=== PATIENT | female | born 1945 | race Caucasian/White ===

== ENCOUNTER → 2018-05-11 13:12 | Outpatient (CLI) | payer MEDICARE, OTHER, SELFPAY | PROVIDERS: Family Provider Physician Assistant Medical; PCP Physician Assistant Medical; Visit Provider Family Medicine | DX: S81.801A Unspecified open wound, right lower leg, initial encounter (principal); E11.9 Type 2 diabetes mellitus without complications; I10 Essential (primary) hypertension | CPT/HCPCS: 99203; 99213 ==

== ENCOUNTER → 2018-05-18 13:38 | Outpatient (CLI) | payer MEDICARE, OTHER, SELFPAY | PROVIDERS: Family Provider Physician Assistant Medical; PCP Physician Assistant Medical; Visit Provider Family Medicine | DX: Z48.817 Encounter for surgical aftercare following surgery on the skin and subcutaneous tissue (principal) | CPT/HCPCS: 99212 ==

== ENCOUNTER → 2018-08-03 10:20 | Outpatient (CLI) | payer MEDICARE, OTHER, SELFPAY ==
--- NOTE | 2018-08-03 | DI.US.S_ITS ---
PROCEDURE: US PERIPH VENOUS LOW EXTREM BI INDICATIONS: Localized edema TECHNIQUE: Real-time imaging, as well as color and pulse Doppler interrogation, were performed of the deep veins of both legs from the inguinal ligament to the popliteal fossa. COMPARISON: None. FINDINGS: Right: The common femoral, femoral and popliteal veins are normally compressible, and free of intraluminal thrombus. Color and pulse Doppler demonstrate normal phasic intravascular flow. There is normal augmentation response to distal compression maneuver. Left: The common femoral, femoral and popliteal veins are normally compressible, and free of intraluminal thrombus. Color and pulse Doppler demonstrate normal phasic intravascular flow. There is normal augmentation response to distal compression maneuver. IMPRESSION: No deep venous thrombosis in the lower extremities. Dictated by: Tamika Martin M.D. on 08/03/2018 at 11:29 Approved by: Tamika Martin M.D. on 08/03/2018 at 11:30
== END ==
PROVIDERS: Family Provider Physician Assistant Medical; PCP Physician Assistant Medical; Visit Provider Podiatrist
DX: R60.0 Localized edema (principal); M79.604 Pain in right leg; M79.605 Pain in left leg; E11.9 Type 2 diabetes mellitus without complications; R26.2 Difficulty in walking, not elsewhere classified
CPT/HCPCS: 93970

== ENCOUNTER → 2018-08-17 10:12 | Outpatient (CLI) | payer MEDICARE, OTHER, SELFPAY ==
--- NOTE | 2018-08-17 | DI.US.S_ITS ---
PROCEDURE: US PENNIE LIMITED SINGLE LEVEL INDICATIONS: CELLULITIS RIGHT LEG TECHNIQUE: Ankle-brachial indices were obtained bilaterally and recorded. COMPARISONS: FINDINGS: Right ankle brachial index (PENNIE): 1.4 Left ankle brachial index (PENNIE): 1.3 IMPRESSION: Ankle-brachial indices within normal limits bilaterally. Dictated by: Leonard Hemphill [facility] Interpreted: Jp Nash MD on 08/17/2018 at 16:16 Approved by: Jp Nash M.D. on 08/17/2018 at 16:46
== END ==
PROVIDERS: Family Provider Physician Assistant Medical; PCP Physician Assistant Medical; Visit Provider Physician Assistant Medical
DX: L03.115 Cellulitis of right lower limb (principal)
CPT/HCPCS: 93922

== ENCOUNTER → 2018-08-31 13:23 | Outpatient (CLI) | payer MEDICARE, OTHER, SELFPAY | PROVIDERS: Family Provider Physician Assistant Medical; PCP Physician Assistant Medical; Visit Provider Family Medicine | DX: S81.801A Unspecified open wound, right lower leg, initial encounter (principal); L89.890 Pressure ulcer of other site, unstageable | CPT/HCPCS: 11042; 99213; 99214 ==

== ENCOUNTER → 2018-09-02 13:04 | Outpatient (CLI) | payer MEDICARE, OTHER, SELFPAY | PROVIDERS: Family Provider Physician Assistant Medical; PCP Physician Assistant Medical; Visit Provider Family Medicine | DX: I87.2 Venous insufficiency (chronic) (peripheral) (principal); L97.811 Non-pressure chronic ulcer of other part of right lower leg limited to breakdown of skin | CPT/HCPCS: 29581 ==

== ENCOUNTER → 2018-09-09 15:15 | Outpatient (CLI) | payer MEDICARE, OTHER, SELFPAY | PROVIDERS: Family Provider Physician Assistant Medical; PCP Physician Assistant Medical; Visit Provider Family Medicine | DX: I87.311 Chronic venous hypertension (idiopathic) with ulcer of right lower extremity (principal); L97.212 Non-pressure chronic ulcer of right calf with fat layer exposed; E66.01 Morbid (severe) obesity due to excess calories | CPT/HCPCS: 29581; 99213 ==

== ENCOUNTER → 2018-09-16 11:03 | Outpatient (CLI) | payer MEDICARE, OTHER, SELFPAY | PROVIDERS: Family Provider Physician Assistant Medical; PCP Physician Assistant Medical; Visit Provider Family Medicine | DX: I87.311 Chronic venous hypertension (idiopathic) with ulcer of right lower extremity (principal); L97.822 Non-pressure chronic ulcer of other part of left lower leg with fat layer exposed; R60.0 Localized edema | CPT/HCPCS: 29581; 99213 ==

== ENCOUNTER → 2018-09-23 14:46 | Outpatient (CLI) | payer MEDICARE, OTHER, SELFPAY | PROVIDERS: Family Provider Physician Assistant Medical; PCP Physician Assistant Medical; Visit Provider Family Medicine | DX: I87.312 Chronic venous hypertension (idiopathic) with ulcer of left lower extremity (principal); L97.822 Non-pressure chronic ulcer of other part of left lower leg with fat layer exposed; I87.322 Chronic venous hypertension (idiopathic) with inflammation of left lower extremity | CPT/HCPCS: 99213 ==

== ENCOUNTER → 2018-09-30 10:25 | Outpatient (CLI) | payer MEDICARE, OTHER, SELFPAY | PROVIDERS: Family Provider Physician Assistant Medical; PCP Physician Assistant Medical; Visit Provider Family Medicine | DX: Z48.817 Encounter for surgical aftercare following surgery on the skin and subcutaneous tissue (principal) | CPT/HCPCS: 99212; 99213 ==

== ENCOUNTER → 2018-10-01 09:37 | Outpatient (CLI) | payer MEDICARE, OTHER, SELFPAY ==
--- NOTE | 2018-10-01 | DI.US.S_ITS ---
PROCEDURE: US VENOUS INSUFFICIENCY LTD INDICATIONS: CHRONIC VENOUS HYPERTENSION TECHNIQUE: Real time scanning was performed of the lower extremity venous system, with imaging documentation, as well as Color and pulse Doppler interrogation. COMPARISON: None. FINDINGS: RIGHT LOWER EXTREMITY: The deep veins are normally compressible, and free of intraluminal thrombus. Color and pulse Doppler demonstrate normal intravascular flow. There is normal augmentation with distal compression maneuver. Mild reflux within the common femoral vein. Greater saphenous vein (GSV): Reflux present with duration of reflux extending beyond 0.5 seconds. See technical diagram for specific measurements and course of the greater saphenous vein. Anterior accessory GSV (AAGSV): Not evaluated. Small saphenous vein (SSV): Reflux present with duration of reflux extending beyond 0.5 seconds. IMPRESSION: 1. Reflux within the right greater and shorter saphenous veins and mild reflux within the common femoral vein. Dictated by: Leonard BARLOW Interpreted: Verenice Lebron MD on 10/01/2018 at 11:04 Approved by: Verenice Lebron M.D. on 10/01/2018 at 16:00
== END ==
PROVIDERS: Family Provider Physician Assistant Medical; PCP Physician Assistant Medical; Visit Provider Family Medicine
DX: I87.312 Chronic venous hypertension (idiopathic) with ulcer of left lower extremity (principal); I87.322 Chronic venous hypertension (idiopathic) with inflammation of left lower extremity
CPT/HCPCS: 93971

== ENCOUNTER → 2018-10-05 14:54 | Outpatient (CLI) | payer MEDICARE, OTHER, SELFPAY | PROVIDERS: Family Provider Physician Assistant Medical; PCP Physician Assistant Medical; Visit Provider Family Medicine | DX: I87.2 Venous insufficiency (chronic) (peripheral) (principal); L97.811 Non-pressure chronic ulcer of other part of right lower leg limited to breakdown of skin | CPT/HCPCS: 99213 ==

== ENCOUNTER → 2018-11-10 13:00 | Outpatient (CLI) | payer MEDICARE, OTHER, SELFPAY | PROVIDERS: Family Provider Physician Assistant Medical; PCP Physician Assistant Medical; Visit Provider Family Medicine | DX: I87.311 Chronic venous hypertension (idiopathic) with ulcer of right lower extremity (principal); L97.811 Non-pressure chronic ulcer of other part of right lower leg limited to breakdown of skin; R60.0 Localized edema; M79.661 Pain in right lower leg; E66.01 Morbid (severe) obesity due to excess calories | CPT/HCPCS: 97597 ==

== ENCOUNTER → 2018-11-17 13:46 | Outpatient (CLI) | payer MEDICARE, OTHER, SELFPAY | PROVIDERS: Family Provider Physician Assistant Medical; PCP Physician Assistant Medical; Visit Provider Family Medicine | DX: I87.311 Chronic venous hypertension (idiopathic) with ulcer of right lower extremity (principal); L97.811 Non-pressure chronic ulcer of other part of right lower leg limited to breakdown of skin; M79.604 Pain in right leg; E11.9 Type 2 diabetes mellitus without complications; E66.01 Morbid (severe) obesity due to excess calories; R60.0 Localized edema | CPT/HCPCS: 97597 ==

== ENCOUNTER → 2018-11-24 14:27 | Outpatient (CLI) | payer MEDICARE, OTHER, SELFPAY | PROVIDERS: Family Provider Physician Assistant Medical; PCP Physician Assistant Medical; Visit Provider Family Medicine | DX: I87.311 Chronic venous hypertension (idiopathic) with ulcer of right lower extremity (principal); L97.211 Non-pressure chronic ulcer of right calf limited to breakdown of skin; R60.0 Localized edema; E11.9 Type 2 diabetes mellitus without complications | CPT/HCPCS: 11104 ==

== ENCOUNTER 2018-11-24 19:31 | Emergency (ER) | payer MEDICARE, OTHER, SELFPAY ==
[2018-11-24 19:41] VITALS: BP 108/61; PULSE 81; RESP 22; TEMP 36.2; O2SAT 94
--- NOTE | 2018-11-24 21:54 | PC.NURSE ---
Pt saturated abd paid with coban, replaced dressing with more pressure from coban, kept the surgicel and surgifoam in place.
[2018-11-24 23:04] VITALS: BP 115/77; PULSE 68; O2SAT 96
--- NOTE | 2018-11-25 00:32 | ED_ITS ---
HPI - Skin/Abscess/Foreign Bdy General Chief complaint: Skin/Abscess/Foreign Body Stated complaint: wound on calf that wont stop bleeding,thinners Time Seen by Provider: 11/25/18 00:17 Source: patient Mode of arrival: ambulatory Limitations: no limitations History of Present Illness HPI narrative: Patient comes emergency department complaining of bleeding from a biopsy site on her right calf. Patient does have the biopsy today, and is on Xarelto. She states she mentioned this to her doctor, and that she was told the wound should have any trouble with bleeding. Patient states the bleeding started a few hours ago, and she has not been able to get it to stop. Patient denies any other complaints. No fevers or chills. No pain in the leg. No shortness of breath or dizziness. No chest pain. Related Data Home Medications Medication Instructions Recorded Confirmed acetaminophen [Tylenol Extra 500 mg PO Q4HP PRN #0 11/20/16 Strength] cholecalciferol (vitamin D3) 5,000 unit PO QDAY #0 11/20/16 [Vitamin D3] lisinopril-hydrochlorothiazide 1 tab PO QDAY #0 11/20/16 metformin [Glucophage XR] 500 mg PO QDAY #0 11/20/16 rivaroxaban [Xarelto] 20 mg PO QDAY #0 11/20/16 cyclobenzaprine 10 mg PO QDAY #0 01/16/17 metoprolol succinate [Toprol XL] 100 mg PO QPM #0 01/16/17 rosuvastatin [Crestor] 2.5 mg PO SEE INSTRUCTIONS #0 01/16/17 Previous Rx's Medication Instructions Recorded hydrocodone-acetaminophen [[place]] 1 tab PO Q6H PRN #10 tab 01/16/17 lorazepam [Ativan] 1 mg PO BIDP PRN #10 tab 01/16/17 Allergies Allergy/AdvReac Type Severity Reaction Status Date / Time Sulfa (Sulfonamide Allergy Unknown Unverified 07/22/17 12:46 Antibiotics) [SULFA (SULFONAMIDE ANTIBIOTICS)] SEAFOOD Allergy Unknown Uncoded 07/22/17 12:46 STEROID Allergy Unknown MAKES HER Uncoded 07/22/17 12:46 PSYCHO Review of Systems Constitutional Denies chills, Denies fever(s), Denies lethargy and Denies weakness Eyes Denies change in vision, Denies eye discharge, Denies irritation and Denies loss of vision ENT Ears, Nose, Mouth, and Throat: Denies change in voice, Denies neck pain and Denies sore throat Cardiovascular Denies chest pain, Denies irregular heart rhythm, Denies lightheadedness, Denies palpitations, Denies dyspnea, Denies dyspnea on exertion and Denies orthopnea Respiratory Denies cough, Denies dyspnea, Denies dyspnea on exertion and Denies wheezing Gastrointestinal Gastrointestinal: Denies abdominal pain, Denies change in bowel habits, Denies diarrhea, Denies nausea and Denies vomiting Genitourinary Denies hematuria, Denies flank pain, Denies urinary incontinence and Denies urinary urgency Musculoskeletal Denies neck pain Integumentary/Breasts Denies pruritus, Denies erythema, Denies rash and Denies wounds Comments: Bleeding from biopsy site Neurologic Denies confusion, Denies loss of vision and Denies weakness Psychiatric Denies anxiety, Denies confusion, Denies depression, Denies homicidal ideation and Denies suicidal ideation Endocrine Denies palpitations Hematologic/Lymphatic Denies easy bruising Allergic/Immunologic Denies wheezing [facility] Medical History (Updated 11/25/18 @ 00:47 by Tierra Goodman MD) Hyperlipidemia (Acute) HTN (hypertension) (Acute) Lumbar strain (Acute) Osteoarthritis of lumbar spine (Acute) Lower back pain (Acute) Surgical History S/P skin biopsy (Acute) Social History Smoking Status: Never smoker Social History Smoking Status: Never smoker Exam Initial Vital Signs Initial Vital Signs: Vital Signs Temperature 97.1 F L 11/24/18 19:41 Pulse Rate 81 11/24/18 19:41 Respiratory Rate 22 11/24/18 19:41 Blood Pressure 108/61 11/24/18 19:41 Pulse Oximetry 94 11/24/18 19:41 Const General: cooperative and well developed Nutritional Appearance: well nourished Orientation: alert, awake, oriented x3 and not confused [facility] Head: normocephalic and atraumatic Ears: external ears normal and TM's normal bilaterally Nose: external nose normal and No nasal discharge Face and sinus: sinuses nontender, face symmetric, no sinus tenderness and No dry mucous membranes Mouth: oral mucosae normal and moist mucous membranes Teeth and gingiva: dentition normal Throat: tonsils normal and uvula midline Eyes General: appearance normal, both eyes and all related structures Eyelids: eyelids normal Conjunctivae: conjunctivae normal Sclera: sclerae normal Pupils: PERRL EOM: EOM intact bilaterally Neck Neck: normal visual inspection, trachea midline, No lymphadenopathy, No midline deformity and No JVD Lymphatic: No lymphedema Chest Chest: normal inspection of the chest Resp Effort & Inspection: normal respiratory effort, able to speak in complete sentences, no respiratory distress and no use of accessory muscles Back/Spine/Pelvis Back: No CVA tenderness Cervical Spine: cervical ROM normal and No pain with cervical ROM Thoracic/Lumbar Spine: thoracic and lumbar spine normal to inspection Skin General: no rashes or lesions noted, No jaundice and No petechiae Other: Patient has a small wound which is covered with Surgicel and is clotted off without bleeding. Neuro General: alert, oriented x3, gait normal and no focal motor deficits Speech: speech normal Extrem General: full ROM, no clubbing, cyanosis or edema, no pedal edema and no calf tenderness Psych Appearance: well kempt Mental Status: mental status grossly normal Attitude: cooperative Thought Content: normal and suicidality Judgment: judgment good Course Course Narrative: Surgicel was applied to the patient's wound and hemostasis was achieved. Patient was observed for about 20 minutes in the emergency department to be sure that the bleeding did not restart. As hemostasis was maintained, a dressing was placed around the calf. We have discussed elevation and avoidance of friction to the area. We have discussed home management of the wound, as well as the usual indications for return. Vital Signs - 8 hr 11/24/18 19:41 11/24/18 23:04 Temperature 97.1 F L Pulse Rate 81 68 Respiratory Rate 22 Blood Pressure 108/61 Blood Pressure [Left Arm] 115/77 Pulse Oximetry 94 96 MDM - Skin/Abscess/Foreign Bdy Medical Records Attestation: I reviewed the patient's medical records. Discharge Plan Departure Patient Disposition: Home Clinical Impression: Status post biopsy of skin Post-op bleeding Qualifiers: Surgical complication system/body Area: skin Procedure type: dermatologic Qualified Code(s): L76.21 - Postprocedural hemorrhage of skin and subcutaneous tissue following a dermatologic procedure Discharge Date/Time: 11/25/18 00:58 Interventions: ED Discharge Assessment Last Done: 11/25/18 00:57 Activity Restrictions/Additional Instructions: It is not uncommon to have bleeding from a biopsy site; however, it is even more of a risk when you are on a blood thinner. You should keep a snot dressing and wrap over your biopsy site for the next 24 hours. If at all possible, do not remove this. If bleeding recurs, put firm, direct pressure on the area for about 20 minutes. If bleeding continues, return to the emergency department. Prescriptions: No Action metformin [Glucophage XR] 500 MG tablet extended release 24 hr 500 mg PO QDAY Qty: 0 RF: 0 rivaroxaban [Xarelto] 20 MG tablet 20 mg PO QDAY Qty: 0 RF: 0 lisinopril-hydrochlorothiazide 10 MG/12.5 MG tablet 1 tab PO QDAY Qty: 0 RF: 0 acetaminophen [Tylenol Extra Strength] 500 MG tablet 500 mg PO Q4HP PRNQty: 0 RF: 0 cholecalciferol (vitamin D3) [Vitamin D3] 2,000 unit tablet 5,000 unit PO QDAY Qty: 0 RF: 0 cyclobenzaprine 10 MG tablet 10 mg PO QDAY Qty: 0 RF: 0 metoprolol succinate [Toprol XL] 100 MG tablet extended release 24 hr 100 mg PO QPM Qty: 0 RF: 0 rosuvastatin [Crestor] 5 MG tablet 2.5 mg PO SEE INSTRUCTIONS Qty: 0 RF: 0 hydrocodone-acetaminophen [[place]] 5 MG/325 MG tablet 1 tab PO Q6H PRNQty: 10 RF: 0 lorazepam [Ativan] 1 MG tablet 1 mg PO BIDP PRNQty: 10 RF: 0 Referrals: An Johnson PA-C [Primary Care Provider] -
--- NOTE | 2018-11-25 00:56 | PC.NURSE ---
Removed dressing, no active bleeding noted. Provider in room to assess wound. Surgicell in place replaced dressing with coban and gauze.
== END 2018-11-25 00:58 | disposition home or self-care (01) ==
PROVIDERS: Emergency Provider Emergency Medicine; Family Provider Physician Assistant Medical; PCP Physician Assistant Medical
DX: Z98.890 Other specified postprocedural states (principal); L76.21 Postprocedural hemorrhage of skin and subcutaneous tissue following a dermatologic procedure
CPT/HCPCS: 11104; 99282; 99283

== ENCOUNTER → 2018-12-01 11:03 | Outpatient (CLI) | payer MEDICARE, OTHER, SELFPAY | PROVIDERS: Family Provider Physician Assistant Medical; PCP Physician Assistant Medical; Visit Provider Family Medicine | DX: C44.712 Basal cell carcinoma of skin of right lower limb, including hip (principal); I87.311 Chronic venous hypertension (idiopathic) with ulcer of right lower extremity; L97.211 Non-pressure chronic ulcer of right calf limited to breakdown of skin; M79.661 Pain in right lower leg; R60.0 Localized edema; E11.9 Type 2 diabetes mellitus without complications | CPT/HCPCS: 99212; 99213 ==

== ENCOUNTER → 2019-05-26 13:32 | Outpatient (CLI) | payer MEDICARE, OTHER, SELFPAY | PROVIDERS: Family Provider Physician Assistant Medical; PCP Physician Assistant Medical; Referring Provider Family Medicine; Visit Provider Family Medicine | DX: E11.628 Type 2 diabetes mellitus with other skin complications (principal); S81.801A Unspecified open wound, right lower leg, initial encounter; S81.802A Unspecified open wound, left lower leg, initial encounter; I87.2 Venous insufficiency (chronic) (peripheral); L57.8 Other skin changes due to chronic exposure to nonionizing radiation; L08.9 Local infection of the skin and subcutaneous tissue, unspecified; R60.0 Localized edema; Z79.01 Long term (current) use of anticoagulants; E11.622 Type 2 diabetes mellitus with other skin ulcer | CPT/HCPCS: 11042; 11045; 87070; 87075; 87077; 87147; 87186; 87205; 99213; 99214 ==

== ENCOUNTER → 2019-06-02 12:18 | Outpatient (CLI) | payer MEDICARE, OTHER, SELFPAY | PROVIDERS: Family Provider Physician Assistant Medical; PCP Physician Assistant Medical; Referring Provider Physician Assistant Medical; Visit Provider Family Medicine | DX: S81.801A Unspecified open wound, right lower leg, initial encounter (principal); S81.802A Unspecified open wound, left lower leg, initial encounter; L57.8 Other skin changes due to chronic exposure to nonionizing radiation; L08.9 Local infection of the skin and subcutaneous tissue, unspecified; I87.2 Venous insufficiency (chronic) (peripheral); R60.0 Localized edema; Z79.01 Long term (current) use of anticoagulants; E11.622 Type 2 diabetes mellitus with other skin ulcer | CPT/HCPCS: 97597; 97598 ==

== ENCOUNTER → 2019-06-16 13:06 | Outpatient (CLI) | payer MEDICARE, OTHER, SELFPAY | PROVIDERS: Family Provider Physician Assistant Medical; PCP Physician Assistant Medical; Referring Provider Physician Assistant Medical; Visit Provider Family Medicine | DX: S81.801A Unspecified open wound, right lower leg, initial encounter (principal); S81.802A Unspecified open wound, left lower leg, initial encounter; I87.2 Venous insufficiency (chronic) (peripheral); E11.628 Type 2 diabetes mellitus with other skin complications; L57.8 Other skin changes due to chronic exposure to nonionizing radiation; R60.0 Localized edema; Z79.01 Long term (current) use of anticoagulants | CPT/HCPCS: 97597; 99212 ==

== ENCOUNTER → 2019-06-30 12:34 | Outpatient (CLI) | payer MEDICARE, OTHER, SELFPAY | PROVIDERS: Family Provider Physician Assistant Medical; PCP Physician Assistant Medical; Referring Provider Physician Assistant Medical; Visit Provider Family Medicine | DX: S81.801A Unspecified open wound, right lower leg, initial encounter (principal); S81.802A Unspecified open wound, left lower leg, initial encounter; I87.2 Venous insufficiency (chronic) (peripheral); E11.628 Type 2 diabetes mellitus with other skin complications; L57.8 Other skin changes due to chronic exposure to nonionizing radiation; R60.0 Localized edema; Z79.01 Long term (current) use of anticoagulants | CPT/HCPCS: 11042 ==

== ENCOUNTER → 2019-07-21 11:08 | Outpatient (CLI) | payer MEDICARE, OTHER, SELFPAY | PROVIDERS: Family Provider Physician Assistant Medical; PCP Physician Assistant Medical; Referring Provider Physician Assistant Medical; Visit Provider Family Medicine | DX: S81.801A Unspecified open wound, right lower leg, initial encounter (principal); L57.8 Other skin changes due to chronic exposure to nonionizing radiation; I87.2 Venous insufficiency (chronic) (peripheral); L97.821 Non-pressure chronic ulcer of other part of left lower leg limited to breakdown of skin; R60.0 Localized edema; Z79.01 Long term (current) use of anticoagulants; E11.622 Type 2 diabetes mellitus with other skin ulcer | CPT/HCPCS: 11042; 87070; 87077; 87186; 87205 ==

== ENCOUNTER → 2019-08-11 12:57 | Outpatient (CLI) | payer MEDICARE, OTHER, SELFPAY | PROVIDERS: Family Provider Physician Assistant Medical; PCP Physician Assistant Medical; Referring Provider Physician Assistant Medical; Visit Provider Family Medicine | DX: I87.2 Venous insufficiency (chronic) (peripheral) (principal); E11.622 Type 2 diabetes mellitus with other skin ulcer; L97.811 Non-pressure chronic ulcer of other part of right lower leg limited to breakdown of skin; L97.821 Non-pressure chronic ulcer of other part of left lower leg limited to breakdown of skin; L57.8 Other skin changes due to chronic exposure to nonionizing radiation; L08.9 Local infection of the skin and subcutaneous tissue, unspecified | CPT/HCPCS: 11042; 99213; 99214 ==

== ENCOUNTER → 2019-08-18 13:38 | Outpatient (CLI) | payer MEDICARE, OTHER, SELFPAY | PROVIDERS: Family Provider Physician Assistant Medical; PCP Physician Assistant Medical; Referring Provider Physician Assistant Medical; Visit Provider Family Medicine | DX: I87.2 Venous insufficiency (chronic) (peripheral) (principal); L97.811 Non-pressure chronic ulcer of other part of right lower leg limited to breakdown of skin | CPT/HCPCS: 99212 ==

== ENCOUNTER → 2019-09-01 16:03 | Outpatient (CLI) | payer MEDICARE, OTHER, SELFPAY | PROVIDERS: Family Provider Physician Assistant Medical; PCP Physician Assistant Medical; Referring Provider Physician Assistant Medical; Visit Provider Family Medicine | DX: I87.2 Venous insufficiency (chronic) (peripheral) (principal); L97.811 Non-pressure chronic ulcer of other part of right lower leg limited to breakdown of skin; L57.8 Other skin changes due to chronic exposure to nonionizing radiation; L08.9 Local infection of the skin and subcutaneous tissue, unspecified; B95.7 Other staphylococcus as the cause of diseases classified elsewhere | CPT/HCPCS: 99212; 99214 ==

== ENCOUNTER → 2019-09-22 13:26 | Outpatient (CLI) | payer MEDICARE, OTHER, SELFPAY | PROVIDERS: Family Provider Physician Assistant Medical; PCP Physician Assistant Medical; Referring Provider Physician Assistant Medical; Visit Provider Family Medicine | DX: I87.2 Venous insufficiency (chronic) (peripheral) (principal); L97.811 Non-pressure chronic ulcer of other part of right lower leg limited to breakdown of skin; L57.8 Other skin changes due to chronic exposure to nonionizing radiation | CPT/HCPCS: 97597 ==

== ENCOUNTER → 2019-09-29 14:17 | Outpatient (CLI) | payer MEDICARE, OTHER, SELFPAY | PROVIDERS: Family Provider Physician Assistant Medical; PCP Physician Assistant Medical; Referring Provider Physician Assistant Medical; Visit Provider Family Medicine | DX: L59.8 Other specified disorders of the skin and subcutaneous tissue related to radiation (principal); L97.811 Non-pressure chronic ulcer of other part of right lower leg limited to breakdown of skin; I87.2 Venous insufficiency (chronic) (peripheral) | CPT/HCPCS: 97597; 99213 ==

== ENCOUNTER → 2019-10-06 15:42 | Outpatient (CLI) | payer MEDICARE, OTHER, SELFPAY | PROVIDERS: Family Provider Physician Assistant Medical; PCP Physician Assistant Medical; Referring Provider Physician Assistant Medical; Visit Provider Family Medicine | DX: L59.8 Other specified disorders of the skin and subcutaneous tissue related to radiation (principal); L97.811 Non-pressure chronic ulcer of other part of right lower leg limited to breakdown of skin; I87.2 Venous insufficiency (chronic) (peripheral) | CPT/HCPCS: 99214 ==

== ENCOUNTER → 2019-10-20 13:27 | Outpatient (CLI) | payer MEDICARE, OTHER, SELFPAY | PROVIDERS: Family Provider Physician Assistant Medical; PCP Physician Assistant Medical; Referring Provider Physician Assistant Medical; Visit Provider Family Medicine | DX: L59.8 Other specified disorders of the skin and subcutaneous tissue related to radiation (principal); L97.811 Non-pressure chronic ulcer of other part of right lower leg limited to breakdown of skin; I87.2 Venous insufficiency (chronic) (peripheral) | CPT/HCPCS: 11042 ==

== ENCOUNTER → 2019-10-27 15:12 | Outpatient (CLI) | payer MEDICARE, OTHER, SELFPAY | PROVIDERS: Family Provider Physician Assistant Medical; PCP Physician Assistant Medical; Referring Provider Physician Assistant Medical; Visit Provider Family Medicine | DX: L59.8 Other specified disorders of the skin and subcutaneous tissue related to radiation (principal); L97.811 Non-pressure chronic ulcer of other part of right lower leg limited to breakdown of skin; I87.2 Venous insufficiency (chronic) (peripheral) | CPT/HCPCS: 99213; 99214 ==

== ENCOUNTER 2023-02-06 16:23 | Inpatient (IN) | payer MEDICARE, OTHER, SELFPAY ==
[2023-02-06] VITALS (9 sets, daily range): BP systolic 107–134; BP diastolic 54–73; PULSE 70–81; RESP 20–22; TEMP 36.3–37; O2SAT 91–99; BMI 48.0; BMI 47.2
--- NOTE | 2023-02-06 16:21 | DI.RAD.S_ITS ---
PROCEDURE: XR HIP W PEL IF DONE RT 2V INDICATIONS: fall with pain, rotation TECHNIQUE: AP pelvis with lateral view(s) of the right hip(s). COMPARISON: [facility], , [id number] W PEL IF PERFORMED, 11/20/2016, 10:44. FINDINGS: Bones: Mild displaced fracture of the proximal femur. Decreased osseous mineralization. Degenerative changes of the visualized lower lumbar spine and pubic symphysis. Moderate degenerative changes of the bilateral hips. Soft tissues: The visualized bowel gas pattern is normal. No suspicious soft tissue calcifications. IMPRESSION: Mildly displaced fracture of the proximal right femur. Dictated by: Sundeep Gonzalez M.D. on 02/06/2023 at 16:54 Approved by: Sundeep Gonzalez M.D. on 02/06/2023 at 16:55
--- NOTE | 2023-02-06 16:48 | ED.LOWEXIN ---
HPI - Extremity Injury (Lower) General Chief Complaint: Extremity Injury, Lower Stated Complaint: Fall, Right hip pain Time Seen by Provider: 02/06/23 16:31 Source: patient, family and EMS Mode of arrival: EMS History of Present Illness HPI Narrative: 77-year-old female nonsmoker with history of atrial fibrillation on Eliquis presents by EMS for evaluation of right hip pain. She was attempting to try on her Halloween costume and lost her balance, stumbled backwards and landed on her right hip. She had severe pain and a neighbor tried to help her stand up and she felt a pop and now has significant pain with any attempts to ambulate or palpate. She denies any head neck or back pain. She denies any chest pain or shortness of breath. She denies any numbness, tingling or weakness. Related Data Home Medications Medication Instructions Recorded Confirmed acetaminophen 500 mg tablet 500 mg PO Q4HP PRN ##0 11/20/16 (Tylenol Extra Strength) cholecalciferol (vitamin D3) 50 5,000 unit PO QDAY ##0 11/20/16 mcg (2,000 unit) tablet (Vitamin D3) lisinopril 10 1 tab PO QDAY ##0 11/20/16 mg-hydrochlorothiazide 12.5 mg tablet metformin 500 mg tablet,extended 500 mg PO QDAY ##0 11/20/16 release 24 hr (Glucophage XR) rivaroxaban 20 mg tablet (Xarelto) 20 mg PO QDAY ##0 11/20/16 cyclobenzaprine 10 mg tablet 10 mg PO QDAY ##0 01/16/17 metoprolol succinate 100 mg 100 mg PO QPM ##0 01/16/17 tablet,extended release 24 hr (Toprol XL) rosuvastatin 5 mg tablet (Crestor) 2.5 mg PO SEE INSTRUCTIONS ##0 01/16/17 Previous Rx's Medication Instructions Recorded hydrocodone 5 mg-acetaminophen 325 1 tab PO Q6H PRN #10 tabs 01/16/17 mg tablet ([place]) lorazepam 1 mg tablet (Ativan) 1 mg PO BIDP PRN #10 tabs 01/16/17 Allergies Allergy/AdvReac Type Severity Reaction Status Date / Time Sulfa (Sulfonamide Allergy Unknown Unverified 07/22/17 12:46 Antibiotics) [SULFA (SULFONAMIDE ANTIBIOTICS)] iodine Allergy Swelling Verified 02/06/23 17:20 of Lip/Tongue/Throat SEAFOOD Allergy Unknown Uncoded 07/22/17 12:46 STEROID Allergy Unknown MAKES HER Uncoded 07/22/17 12:46 PSYCHO Review of Systems Review of Systems Narrative: GENERAL: Denies chills, fatigue, malaise, fever, sweats. HEENT: Denies sinus pain, ear pain, sore throat, difficulty swallowing, dizziness. RESPIRATORY: Denies dyspnea, cough, wheezing, hemoptysis, sputum. CARDIOVASCULAR: Denies chest pain, palpitations, orthopnea, edema, GASTROINTESTINAL: Denies nausea, vomiting, abdominal pain, diarrhea, constipation, melena. : Denies dysuria, frequency, incontinence, hematuria, urinary retention. MUSCULOSKELETAL: See HPI SKIN: Denies rash, skin lesions, or other NEUROLOGIC: Denies weakness, headache, numbness, change in speech, confusion, seizures, incoordination. PSYCHIATRIC: No concerning psychosocial issues. 12 point review of systems is negative except for those stated above Patient History Medical History Hyperlipidemia HTN (hypertension) Lower back pain Osteoarthritis of lumbar spine Lumbar strain Surgical History S/P skin biopsy Social History Smoking Status: Never smoker Smoking Status: Never smoker alcohol intake frequency: holidays/special occasions only Substance Use Type: does not use Exam Narrative Exam Narrative: GENERAL: [77] year old patient appears stated age. Well-developed patient, in mild distress. GCS 15 HEAD: Atraumatic. Normocephalic. EYES: Pupils equal round and reactive. Extraocular motions intact. No scleral icterus. No injection or drainage. ENT: Nose without bleeding, purulent drainage. Throat without erythema, tonsillar hypertrophy or exudate. Airway patent. NECK: Trachea midline. Non tender CARDIOVASCULAR: Regular rate and rhythm without murmurs, gallops, or rubs. RESPIRATORY: Clear to auscultation. Breath sounds equal bilaterally. No wheezes, rales, or rhonchi. GASTROINTESTINAL: Abdomen soft, non-tender, nondistended. EXTREMITIES: Right hip tender to palpate, some external rotation, no shortening, patient has known neuropathy bilaterally and has no change BACK: Nontender without deformity or crepitance. No flank tenderness. NEURO: AOx3. SKIN: No rash or erythema of visible areas Initial Vital Signs Initial Vital Signs: Vital Signs Pulse Rate 78 02/06/23 16:24 Blood Pressure 134/68 02/06/23 16:24 Pulse Oximetry 92 02/06/23 16:24 Course Orders Ordered: ED Orders 02/06/23 16:21 XR hip w pel if done RT 2V Stat 02/06/23 16:30 Complete Blood Count AUTO DIFF Stat Comprehensive Metabolic Panel Stat Prothrombin Time INR Stat Discontinued Medications Lidocaine HCl (Lidocaine 2% (Glydo) 6 Ml Gel) 6 ml TOP NOW ONE Stop: 02/06/23 16:45 Last Admin: 02/06/23 17:20 Dose: Not Given Vital Signs Vital signs: Vital Signs - 8 hr 02/06/23 16:24 02/06/23 16:24 02/06/23 16:28 Temperature 98 F Pulse Rate 78 81 Respiratory Rate 20 Blood Pressure 134/68 134/68 Pulse Oximetry 92 99 Oxygen Delivery Method Room Air 02/06/23 16:30 02/06/23 17:00 Temperature Pulse Rate 70 71 Respiratory Rate Blood Pressure Pulse Oximetry 97 97 Oxygen Delivery Method MDM - Extremity Injury (Lower) Lab Data 02/06/23 16:30 02/06/23 16:30 Labs: Lab Results 02/06/23 Range/Units 16:30 WBC 8.8 (4.5-11.0) X10^3/uL RBC 4.78 (4.0-5.2) X10^6/uL Hgb 15.8 (12.0-16.0) g/dL Hct 45.7 (36-46) % MCV 95.5 (80-100) fL MCH 33.0 (26-34) PG MCHC 34.6 (30-36) % RDW 13.7 (11.6-14.8) % Plt Count 168 (150-400) X10^3/uL Neut % (Auto) 73.7 (50-75) % Lymph % (Auto) 17.0 L (25-40) % [place] % (Auto) 7.4 (3-14) % Eos % (Auto) 1.2 L (2-4) % Baso % (Auto) 0.7 (0-2) % Neut # (Auto) 6500 (5481-3358) /uL Lymph # (Auto) 1500 (1818-8483) /uL [place] # (Auto) 700 (0-900) /uL Eos # (Auto) 100 (0-450) /uL Baso # (Auto) 100 (0-100) /uL PT 18.5 H (10.1-12.7) SECONDS INR 1.6 H (0.9-1.3) Sodium 137 (137-145) mmol/L Potassium 3.7 (3.4-5.1) mmol/L Chloride 100 (98-107) mmol/L Carbon Dioxide 28 (22-32) mmol/L BUN 24 H (7-17) mg/dL Creatinine 1.03 (0.52-1.04) mg/dL Estimated GFR 56 L (>60) mL/min BUN/Creatinine Ratio 23.3 H (6-22) Glucose 154 H (80-110) mg/dL Calcium 9.4 (8.4-10.2) mg/dL Total Bilirubin 0.9 (0.2-1.3) mg/dL AST 29 (14-36) IU/L ALT 22 (<35) IU/L Alkaline Phosphatase 64 (38-126) U/L Total Protein 7.7 (6.3-8.2) g/dL Albumin 2.7 L (3.5-5.0) g/dL Globulin 5.0 H (1.7-4.1) g/dL Albumin/Globulin Ratio 0.5 L (1.0-2.8) MDM Narrative Medical decision making narrative: [77] year old patient presents with ground level fall and right hip pain Multiple etiologies for patient's symptoms considered including, but not limited to: [Fracture versus dislocation versus contusion versus other] Prior Charts reviewed in our EMR Primary Historian: patient Labs reviewed and interpreted by myself: No leukocytosis or left shift, no signs of anemia, primary electrolytes within normal limits Imaging reviewed: X-ray demonstrates proximal femur fracture Consultations:Dr. Isaacs (Ortho). Recommends admission, NPO, hold anticoag and admission to hospitalist. Dr. Springer (hospitalist) happy to accept on his service Patient and family understand and agree with the diagnosis and plan Discharge Plan Departure Patient Disposition: Admitted As Inpatient Clinical Impression: Closed right femoral fracture Admit Date/Time: 02/06/23 17:12 Admit Provider: Deric Springer
[2023-02-06 17:03] LABS: Add Manual Diff / Slide Review NO; Basophils Absolute Auto 100 /uL (0-100); Basophils Percent Auto 0.7 % (0-2); Eosinophils Absolute Auto 100 /uL (0-450); Eosinophils Percent Auto 1.2 % (2-4); Hematocrit 45.7 % (36-46); Hemoglobin 15.8 g/dL (12.0-16.0); Lymphocytes Absolute Auto 1500 /uL (1100-4500); Mean Corpuscular HGB Conc 34.6 % (30-36); Mean Corpuscular Volume 95.5 fL (80-100); Monocytes Absolute Auto 700 /uL (0-900); Monocytes Percent Auto 7.4 % (3-14); Neutrophils Absolute Auto 6500 /uL (1500-7000); Neutrophils Percent Auto 73.7 % (50-75); Platelet Count 168 X10^3/uL (150-400); Red Blood Cell Count 4.78 X10^6/uL (4.0-5.2); Red Cell Distribution Width 13.7 % (11.6-14.8); White Blood Cell Count 8.8 X10^3/uL (4.5-11.0)
[2023-02-06 17:04] LABS: INR 1.6 (0.9-1.3); Prothrombin Time 18.5 SECONDS (10.1-12.7)
[2023-02-06 17:08] LABS: Alanine Aminotransferase 22 IU/L (<35); Albumin 2.7 g/dL (3.5-5.0); Albumin Globulin Ratio 0.5 (1.0-2.8); Alkaline Phosphatase 64 U/L (38-126); Aspartate Aminotransferase 29 IU/L (14-36); BUN Creatinine Ratio 23.3 (6-22); Bilirubin Total 0.9 mg/dL (0.2-1.3); Blood Urea Nitrogen 24 mg/dL (7-17); Calcium 9.4 mg/dL (8.4-10.2); Carbon Dioxide 28 mmol/L (22-32); Chloride 100 mmol/L (98-107); Estimated Glomerular Filt Rate 56 mL/min (>60); Glucose 154 mg/dL (80-110); HEMOLYSIS 30 (0-50); Potassium 3.7 mmol/L (3.4-5.1); Sodium 137 mmol/L (137-145); Total Protein 7.7 g/dL (6.3-8.2)
--- NOTE | 2023-02-06 17:21 | PC.NURSE ---
Provider ordered patient to have catheter placed. Patient already has a purewick in place and declined to have turner placed unless it was emergently required. This RN checked with provider and provider authorized patient to continue to use purewick.
--- NOTE | 2023-02-06 18:11 | P.HP_ITS ---
History of Present Illness History of Present Illness Date Patient Seen: 02/06/23 Chief complaint: Fall, Right hip pain Narrative: Sandra Espinoza is a 77yo F with PMH of atrial fibrillation on Eliquis, HTN, HLD, and DM2 who presents with GLF at home resulting in R hip fracture. Patient was attempting to put on a Halloween costume over head and lost her balance, falling back and landing directly on her right hip. She felt an immediate pain. The fall occurred on carpet. She denies history of osteoporosis and said her last DEXA 2 years ago was good. She denies striking her head, CP, SOB, NV, abd pain or diarrhea. PFSH Medical History Hyperlipidemia HTN (hypertension) Lower back pain Osteoarthritis of lumbar spine Lumbar strain Surgical History S/P skin biopsy Social History household members: none Smoking Status: Never smoker alcohol intake: current Meds Home Medications and Allergies Home Medications Medication Instructions Recorded Confirmed Type acetaminophen 500 mg tablet 500 mg PO Q4HP PRN Pain (Scale 11/20/16 02/06/23 History (Tylenol Extra Strength) Score 1-3) ##0 cholecalciferol (vitamin D3) 50 5,000 unit PO QDAY ##0 11/20/16 02/06/23 History mcg (2,000 unit) tablet (Vitamin D3) metoprolol succinate 100 mg 100 mg PO QPM ##0 01/16/17 02/06/23 History tablet,extended release 24 hr (Toprol XL) allopurinol 100 mg tablet 100 mg PO ONCE PM gout pain 02/06/23 02/06/23 History apixaban 5 mg tablet (Eliquis) 5 mg PO BID 02/06/23 02/06/23 History dulaglutide 0.75 mg/0.5 mL 0.75 mg SUBCUT QWEEK 02/06/23 02/06/23 [facility] furosemide 40 mg tablet 40 mg PO QAM 02/06/23 02/06/23 History gabapentin 600 mg tablet 600 mg PO BID 02/06/23 02/06/23 History glimepiride 4 mg tablet 4 mg PO BID 02/06/23 02/06/23 History rosuvastatin 5 mg tablet 5 mg PO DAILY 02/06/23 02/06/23 History spironolactone 25 mg tablet 25 mg PO DAILY 02/06/23 02/06/23 History tramadol 50 mg tablet 100 mg PO BID PRN pain 02/06/23 02/06/23 History Allergies Allergy/AdvReac Type Severity Reaction Status Date / Time Sulfa (Sulfonamide Allergy Unknown Verified 02/06/23 20:20 Antibiotics) [SULFA (SULFONAMIDE ANTIBIOTICS)] iodine Allergy Swelling Verified 02/06/23 17:20 of Lip/Tongue/Throat SEAFOOD Allergy Unknown Uncoded 07/22/17 12:46 STEROID Allergy Unknown MAKES HER Uncoded 07/22/17 12:46 PSYCHO Review of Systems Review of Systems Narrative: All other systems reviewed with the patient and are negative unless otherwise stated. Exam Vital Signs (past 8 hours): - 02/06/23 16:24 02/06/23 16:24 02/06/23 16:28 Temperature 98 F Pulse Rate 78 81 Pulse Rate [Right Dorsalis Pedis] Respiratory Rate 20 Blood Pressure 134/68 134/68 Pulse Oximetry 92 99 Oxygen Delivery Method Room Air Oxygen Flow Rate 02/06/23 16:30 02/06/23 17:00 02/06/23 17:14 Temperature Pulse Rate 70 71 Pulse Rate [Right Dorsalis Pedis] 80 Respiratory Rate Blood Pressure Pulse Oximetry 97 97 Oxygen Delivery Method Oxygen Flow Rate 02/06/23 17:30 02/06/23 18:00 Temperature 98.6 F Pulse Rate 71 77 Pulse Rate [Right Dorsalis Pedis] Respiratory Rate 22 Blood Pressure 114/73 Pulse Oximetry 95 91 Oxygen Delivery Method Oxygen Flow Rate 0 Oxygen Delivery Method Room Air Oxygen Flow Rate 0 Narrative Exam Narrative: GEN: no acute distress, tearful and anxious HEENT: moist mucous membranes, PERRL NECK: trachea midline, no JVD CV: regular rate and rhythm, no murmurs PULM: clear bilaterally ABD: soft, nontender, nondistended, no organomegaly EXT: R leg externally rotated NEURO: awake, alert, oriented, no focal deficits Objective Labs 02/06/23 16:30 02/06/23 16:30 Labs: Laboratory Results - last 24 hr 02/06/23 16:30 WBC 8.8 RBC 4.78 Hgb 15.8 Hct 45.7 MCV 95.5 MCH 33.0 MCHC 34.6 RDW 13.7 Plt Count 168 Neut % (Auto) 73.7 Lymph % (Auto) 17.0 L [place] % (Auto) 7.4 Eos % (Auto) 1.2 L Baso % (Auto) 0.7 Neut # (Auto) 6500 Lymph # (Auto) 1500 [place] # (Auto) 700 Eos # (Auto) 100 Baso # (Auto) 100 PT 18.5 H INR 1.6 H Sodium 137 Potassium 3.7 Chloride 100 Carbon Dioxide 28 BUN 24 H Creatinine 1.03 Estimated GFR 56 L BUN/Creatinine Ratio 23.3 H Glucose 154 H Calcium 9.4 Total Bilirubin 0.9 AST 29 ALT 22 Alkaline Phosphatase 64 Total Protein 7.7 Albumin 2.7 L Globulin 5.0 H Albumin/Globulin Ratio 0.5 L Assessment & Plan Assessment & Plan narrative: # right hip fracture -from ground level fall all trying on [place] costume -hip x-ray with fracture of right proximal femur -ortho consulted, NPO at midnight for surgery -pain control # atrial fibrillation -currently rate controlled -hold home Eliquis, last dose was at 0730 on 02/06 -continue metoprolol # hypertension -no longer on lisinopril/HCTZ -continue metoprolol and spironolactone # hyperlipidemia -continue home statin # type 2 diabetes -hold home metformin -low-dose sliding scale insulin Code status is full code. DVT prophylaxis with SCDs. Proxy is daughter Sydni. I have reviewed home meds and used all available resources to reconcile the home meds. Case discussed with ED physician/APC and patient will be admitted to the hospitalist service for further workup and management. This patient will be admitted as inpatient and will require greater than 2 midnights of hospital time to treat right hip fracture.
[2023-02-06] MEDS: HYDROMORPHONE 0.5 MG INJ IV (18:34)
[2023-02-06] MEDS: OXYCODONE IR 5 MG TABLET PO ×2 (18:34→22:42)
[2023-02-06] MEDS: ATORVASTATIN 20 MG TABLET 10 MG PO (20:30)
[2023-02-06] MEDS: GABAPENTIN 600 MG TABLET PO (20:31)
--- NOTE | 2023-02-06 20:33 | P.HP_ITS ---
History of Present Illness History of Present Illness Date Patient Seen: 02/06/23 Time Patient Seen: 20:33 Date of Onset of Symptoms: 02/06/23 Chief complaint: Fall, Right hip pain Narrative: This is a 77-year-old female with multiple medical problems who was getting ready for a [employer] when she fell and noted the acute onset of right hip pain. She has a long history of diabetes. She has significant peripheral neuropathy in bilateral lower extremities with numbness in both feet. She normally ambulates with a walker. She was not short of breath or lightheaded prior to the fall. She does not have any new chest pain. She notes significant right hip pain. They did attempt to stand her up with a walker when she heard a crunch and was unable to weight bear on her right leg. [facility] Medical History Hyperlipidemia HTN (hypertension) Lower back pain Osteoarthritis of lumbar spine Lumbar strain Surgical History S/P skin biopsy Social History household members: none Smoking Status: Never smoker alcohol intake: current Meds Home Medications and Allergies Home Medications Medication Instructions Recorded Confirmed Type acetaminophen 500 mg tablet 500 mg PO Q4HP PRN Pain (Scale 11/20/16 02/06/23 History (Tylenol Extra Strength) Score 1-3) ##0 cholecalciferol (vitamin D3) 50 5,000 unit PO QDAY ##0 11/20/16 02/06/23 History mcg (2,000 unit) tablet (Vitamin D3) metoprolol succinate 100 mg 100 mg PO QPM ##0 01/16/17 02/06/23 History tablet,extended release 24 hr (Toprol XL) allopurinol 100 mg tablet 100 mg PO ONCE PM gout pain 02/06/23 02/06/23 History apixaban 5 mg tablet (Eliquis) 5 mg PO BID 02/06/23 02/06/23 History dulaglutide 0.75 mg/0.5 mL 0.75 mg SUBCUT QWEEK 02/06/23 02/06/23 [facility] furosemide 40 mg tablet 40 mg PO QAM 02/06/23 02/06/23 History gabapentin 600 mg tablet 600 mg PO BID 02/06/23 02/06/23 History glimepiride 4 mg tablet 4 mg PO BID 02/06/23 02/06/23 History rosuvastatin 5 mg tablet 5 mg PO DAILY 02/06/23 02/06/23 History spironolactone 25 mg tablet 25 mg PO DAILY 02/06/23 02/06/23 History tramadol 50 mg tablet 100 mg PO BID PRN pain 02/06/23 02/06/23 History Allergies Allergy/AdvReac Type Severity Reaction Status Date / Time Sulfa (Sulfonamide Allergy Unknown Verified 02/06/23 20:20 Antibiotics) [SULFA (SULFONAMIDE ANTIBIOTICS)] iodine Allergy Swelling Verified 02/06/23 17:20 of Lip/Tongue/Throat SEAFOOD Allergy Unknown Uncoded 07/22/17 12:46 STEROID Allergy Unknown MAKES HER Uncoded 07/22/17 12:46 PSYCHO Review of Systems Review of Systems Narrative: She has chronic atrial fibrillation and takes Eliquis for her chronic atrial fibrillation she has a longstanding history of diabetes she does have a history of peripheral neuropathy. She is not had new chest pain lightheadedness palpitations or other symptoms prior to her fall and she says that she is not been having significant problems with her diabetic control. Exam Vital Signs (past 8 hours): - 02/06/23 16:24 02/06/23 16:24 02/06/23 16:28 Temperature 98 F Pulse Rate 78 81 Pulse Rate [Right Dorsalis Pedis] Respiratory Rate 20 Blood Pressure 134/68 134/68 Pulse Oximetry 92 99 Oxygen Delivery Method Room Air Oxygen Flow Rate 02/06/23 16:30 02/06/23 17:00 02/06/23 17:14 Temperature Pulse Rate 70 71 Pulse Rate [Right Dorsalis Pedis] 80 Respiratory Rate Blood Pressure Pulse Oximetry 97 97 Oxygen Delivery Method Oxygen Flow Rate 02/06/23 17:30 02/06/23 18:00 02/06/23 20:26 Temperature 98.6 F 97.3 F L Pulse Rate 71 77 72 Pulse Rate [Right Dorsalis Pedis] Respiratory Rate 22 20 Blood Pressure 114/73 107/54 L Pulse Oximetry 95 91 94 Oxygen Delivery Method Oxygen Flow Rate 0 0 Oxygen Delivery Method Room Air Oxygen Flow Rate 0 Narrative Exam Narrative: She is resting comfortably in bed, neck is supple, lungs are clear cor is regular without a significant murmur abdomen is soft and benign she is quite obese, examination of the right lower extremity shows tenderness with gentle range of motion of the right hip skin is intact, she has dense numbness in the right lower extremity she does have some capillary refill from the right lower extremity but also has venous stasis there is some erythematous change in her feet and some swelling bilateral lower extremities she is pain with range of motion in the right hip but no severe shortening Objective Labs 02/06/23 16:30 02/06/23 16:30 Labs: Laboratory Results - last 24 hr 02/06/23 16:30 WBC 8.8 RBC 4.78 Hgb 15.8 Hct 45.7 MCV 95.5 MCH 33.0 MCHC 34.6 RDW 13.7 Plt Count 168 Neut % (Auto) 73.7 Lymph % (Auto) 17.0 L [place] % (Auto) 7.4 Eos % (Auto) 1.2 L Baso % (Auto) 0.7 Neut # (Auto) 6500 Lymph # (Auto) 1500 [place] # (Auto) 700 Eos # (Auto) 100 Baso # (Auto) 100 PT 18.5 H INR 1.6 H Sodium 137 Potassium 3.7 Chloride 100 Carbon Dioxide 28 BUN 24 H Creatinine 1.03 Estimated GFR 56 L BUN/Creatinine Ratio 23.3 H Glucose 154 H Calcium 9.4 Magnesium 2.0 Total Bilirubin 0.9 AST 29 ALT 22 Alkaline Phosphatase 64 Total Protein 7.7 Albumin 2.7 L Globulin 5.0 H Albumin/Globulin Ratio 0.5 L X-rays show a right subtrochanteric hip fracture with minimal displacement Assessment & Plan Assessment and plan (1) Closed right femoral fracture: Status: Acute (2) HTN (hypertension): Status: Acute (3) Peripheral neuropathy: Status: Acute (4) Diabetes: Status: Acute (5) Renal function impairment: Status: Acute Plan She has a closed right subtrochanteric hip fracture. I have recommended fixation with an intramedullary abel. She has chronic atrial fibrillation and is on Eliquis. I discussed her further with anesthesia and we feel that surgical timing with fixation of her femur on Thursday would be appropriate based on her using anticoagulants and her impaired renal function. She has multiple medical problems including atrial fibrillation, severe peripheral neuropathy, diabetes, morbid obesity and impaired renal function. The procedure options risks benefits and complications were discussed in great detail. Options risks benefits and complications were discussed. We will proceed with surgery on Thursday. She needs to be NPO past midnight on Thursday night. We will hold blood thinners at this point is she is already partially anticoagulated. Quality VTE Deep Vein Thrombosis/Pulmonary Embolism Present on Admission: No
[2023-02-07] VITALS (9 sets, daily range): BP systolic 111–136; BP diastolic 59–79; PULSE 75–103; RESP 16–24; TEMP 36.2–37.1; O2SAT 91–97
--- NOTE | 2023-02-07 00:41 | PC.NURSE ---
Patient is alert and oriented. Breath sounds CTA with RA sat of 94%. HR w/irregular rhythm but controlled rate. Denied nausea. BT present and is passing flatus. Declined catheter so external catheter in place. Is able to turn with assist but has increase in pain severity with movement so until hip is repaired will provide assistance for position of comfort. Does have reddened/scaly feet and heels so foam protectors placed. Sacral area is also reddened so encouraged to allow bed to be tilted as tolerated. Toes bilateral feet are dusky but blanchable; cool to touch and has neuropathy bilaterally. Medicated with oxycodone for pain and states it has been helpful as long as she doesn't move. Bilateral calf SCD's applied following shift change. Fall risk score is high and bed alarm is activated.
[2023-02-07] MEDS: ACETAMINOPHEN 325 MG TABLET 650 MG PO (04:21)
[2023-02-07] MEDS: OXYCODONE IR 5 MG TABLET PO ×3 (04:22→12:48)
[2023-02-07] MEDS: HYDROMORPHONE 0.5 MG INJ IV ×2 (04:26→16:05)
[2023-02-07] MEDS: SODIUM CHLORIDE 0.9% FLUSH 10 ML IV ×3 (04:27→21:43)
[2023-02-07 07:28] LABS: Add Manual Diff / Slide Review NO; Basophils Absolute Auto 100 /uL (0-100); Eosinophils Absolute Auto 200 /uL (0-450); Eosinophils Percent Auto 2.1 % (2-4); Hematocrit 43.3 % (36-46); Lymphocytes Absolute Auto 1500 /uL (1100-4500); Lymphocytes Percent Auto 14.6 % (25-40); Mean Corpuscular HGB Conc 34.5 % (30-36); Mean Corpuscular Hemoglobin 32.8 PG (26-34); Mean Corpuscular Volume 95.2 fL (80-100); Monocytes Absolute Auto 900 /uL (0-900); Monocytes Percent Auto 9.2 % (3-14); Neutrophils Absolute Auto 7500 /uL (1500-7000); Neutrophils Percent Auto 73.1 % (50-75); Platelet Count 151 X10^3/uL (150-400); Red Blood Cell Count 4.55 X10^6/uL (4.0-5.2); Red Cell Distribution Width 13.6 % (11.6-14.8); White Blood Cell Count 10.2 X10^3/uL (4.5-11.0)
[2023-02-07 07:47] LABS: BUN Creatinine Ratio 23.5 (6-22); Blood Urea Nitrogen 24 mg/dL (7-17); Calcium 8.9 mg/dL (8.4-10.2); Carbon Dioxide 27 mmol/L (22-32); Chloride 102 mmol/L (98-107); Estimated Glomerular Filt Rate 57 mL/min (>60); Glucose 135 mg/dL (80-110); HEMOLYSIS < 15 (0-50); Potassium 3.7 mmol/L (3.4-5.1); Sodium 137 mmol/L (137-145)
[2023-02-07] MEDS: GABAPENTIN 600 MG TABLET PO ×2 (08:29→21:35)
[2023-02-07] MEDS: SPIRONOLACTONE 25 MG TABLET PO (08:30)
[2023-02-07] MEDS: LORazepam 0.5 MG TABLET PO ×2 (08:30→16:09)
[2023-02-07] MEDS: INSULIN LISPRO 100 UNIT/ML 3ML VIAL SUBCUT ×4 (08:43→21:33)
--- NOTE | 2023-02-07 09:24 | P.CONS_ITS ---
History of Present Illness Consult details Date Patient Seen: 02/07/23 Time Patient Seen: 09:00 Chief complaint: Fall, Right hip pain Narrative: Sandra is uncomfortable, found lying on her left side. Pain is controled by medications. No numbness or tingling down her right leg. Meds Home Medications and Allergies Home Medications Medication Instructions Recorded Confirmed Type acetaminophen 500 mg tablet 500 mg PO Q4HP PRN Pain (Scale 11/20/16 02/06/23 History (Tylenol Extra Strength) Score 1-3) ##0 cholecalciferol (vitamin D3) 50 5,000 unit PO QDAY ##0 11/20/16 02/06/23 History mcg (2,000 unit) tablet (Vitamin D3) metoprolol succinate 100 mg 100 mg PO QPM ##0 01/16/17 02/06/23 History tablet,extended release 24 hr (Toprol XL) allopurinol 100 mg tablet 100 mg PO ONCE PM gout pain 02/06/23 02/06/23 History apixaban 5 mg tablet (Eliquis) 5 mg PO BID 02/06/23 02/06/23 History dulaglutide 0.75 mg/0.5 mL 0.75 mg SUBCUT QWEEK 02/06/23 02/06/23 History subcutaneous pen injector (Trulicity) furosemide 40 mg tablet 40 mg PO QAM 02/06/23 02/06/23 History gabapentin 600 mg tablet 600 mg PO BID 02/06/23 02/06/23 History glimepiride 4 mg tablet 4 mg PO BID 02/06/23 02/06/23 History rosuvastatin 5 mg tablet 5 mg PO DAILY 02/06/23 02/06/23 History spironolactone 25 mg tablet 25 mg PO DAILY 02/06/23 02/06/23 History tramadol 50 mg tablet 100 mg PO BID PRN pain 02/06/23 02/06/23 History Allergies Allergy/AdvReac Type Severity Reaction Status Date / Time Sulfa (Sulfonamide Allergy Unknown Verified 02/06/23 20:20 Antibiotics) [SULFA (SULFONAMIDE ANTIBIOTICS)] iodine Allergy Swelling Verified 02/06/23 17:20 of Lip/Tongue/Throat SEAFOOD Allergy Unknown Uncoded 07/22/17 12:46 STEROID Allergy Unknown MAKES HER Uncoded 07/22/17 12:46 PSYCHO Exam Vital Signs (past 8 hours): - 02/07/23 04:00 02/07/23 08:00 Temperature 97.2 F L 97.5 F L Pulse Rate 75 80 Respiratory Rate 18 16 Blood Pressure 113/70 111/61 Pulse Oximetry 95 96 Oxygen Flow Rate 0 0 Oxygen Delivery Method Room Air Oxygen Flow Rate 0 Const General: cooperative Nutritional Appearance: overweight Orientation: alert and oriented x3 Resp Effort & Inspection: normal respiratory effort and able to speak in complete sentences Extrem Other: Tenderness over right hip to palpation. Pre-existing swelling over left and right feet. Objective Labs 02/07/23 07:12 02/07/23 07:20 Labs: Laboratory Results - last 24 hr 02/06/23 02/07/23 02/07/23 16:30 07:12 07:20 WBC 8.8 10.2 RBC 4.78 4.55 Hgb 15.8 15.0 Hct 45.7 43.3 MCV 95.5 95.2 MCH 33.0 32.8 MCHC 34.6 34.5 RDW 13.7 13.6 Plt Count 168 151 Neut % (Auto) 73.7 73.1 Lymph % (Auto) 17.0 L 14.6 L [place] % (Auto) 7.4 9.2 Eos % (Auto) 1.2 L 2.1 Baso % (Auto) 0.7 1.0 Neut # (Auto) 6500 7500 H Lymph # (Auto) 1500 1500 [place] # (Auto) 700 900 Eos # (Auto) 100 200 Baso # (Auto) 100 100 PT 18.5 H INR 1.6 H Sodium 137 137 Potassium 3.7 3.7 Chloride 100 102 Carbon Dioxide 28 27 BUN 24 H 24 H Creatinine 1.03 1.02 Estimated GFR 56 L 57 L BUN/Creatinine Ratio 23.3 H 23.5 H Glucose 154 H 135 H Calcium 9.4 8.9 Magnesium 2.0 Total Bilirubin 0.9 AST 29 ALT 22 Alkaline Phosphatase 64 Total Protein 7.7 Albumin 2.7 L Globulin 5.0 H Albumin/Globulin Ratio 0.5 L PFSH Medical History Hyperlipidemia HTN (hypertension) Lower back pain Osteoarthritis of lumbar spine Lumbar strain Surgical History S/P skin biopsy Social History household members: none Tobacco & Substance Use Smoking Status: Never smoker alcohol intake: current Assessment & Plan Assessment and plan (1) Closed right femoral fracture: Status: Acute (2) HTN (hypertension): Status: Acute (3) Peripheral neuropathy: Status: Acute (4) Diabetes: Status: Acute (5) Renal function impairment: Status: Acute Plan She has a closed right subtrochanteric hip fracture. Ortho recommended fixation with an intramedullary abel. She has chronic atrial fibrillation and is on Eliquis. She has multiple medical problems including atrial fibrillation, severe peripheral neuropathy, diabetes, morbid obesity and impaired renal function. The procedure options risks benefits and complications were discussed in great detail. Options risks benefits and complications were discussed. We will proceed with surgery on Thursday. She needs to be NPO past midnight on Thursday night. We will hold blood thinners at this point is she is already partially anticoagulated.
[2023-02-07] MEDS: polyethylene glycoL 3350 17 GM POWD.PACK PO (12:48)
--- NOTE | 2023-02-07 13:15 | CM.DANOTE ---
Addendum entered by JANY Anglin 02/07/23 13:32: ADD: Patient is receiving ativan while admitted for sx of anxiety, which is not on her home med list. PASRR will reflect home led list only and should be updated if patient is discharged with ativan. DONIS Original Note: Initial DCP Assessment Note Pt is a 77 yo female, resident of [place], presents after a GLF at home w/subsequent hip fx. Ortho has consulted and recommending hip repair which as been scheduled for tomorrow. PCP: An Johnson Payer: [facility]/[place] Met w/patient and her great grand daughter at bedside, introduced self and role. Patient lives in a mobile home, [place] a mobile home park in [place]. Patient reports she is independent with use of walker. Patient has no hx of HH although has been to SNF in the past- [facility] in [place] which has since closed. Patient anticipates discharging to a SNF. Reviewed [facility] choice list and patient requests referrals to [facility] and [facility]. Reviewed [facility] SNF benefit for patient. Referrals initiated. PASRR completed in anticipation of SNF upon discharge. CM team will follow closely for coordination of plan. JANY Card Discharge Planning/Care Management CM Discharge Assessment Start: 02/07/23 12:28 Freq: Status: Active Protocol: Document 02/07/23 12:28 DONIS (Rec: 02/07/23 13:15 DONIS [id number]) Discharge Planning Assessment Assigned Heavy Mobile Equipment Operator JANY Chirinos DPOA/Assigned Designee Name Zara Wylie, daughter/DPOA Contact Information [phone] Advance Directives? No History Provided By Patient,Family Member,Medical Record Prior Living Arrangements Mobile home Household Members none Type of transporation used prior to Drives own vehicle admit Independent with ADL's Yes: w/walker Is patient alert and oriented? Yes Needs Assistance With Home Chores / Shopping Patient/Family Preference Retirement Facility Barriers to Discharge Yes Comment Patient will need SNF upon discharge Discharge Plan Retirement Facility Transportation Arrangement Likely wheelchair van Referrals Initiated Retirement Additional Comment [facility] Medicare Choice List Provided Yes SNF/HH Preference [facility], [facility]
--- NOTE | 2023-02-07 15:49 | DI.CT.S_ITS ---
PROCEDURE: CT HEAD/BRAIN WO CON INDICATIONS: confusion, fall yesterday TECHNIQUE: Noncontrast 4.5 mm thick angled axial sections acquired from the foramen magnum to the vertex, with coronal and sagittal reformats. For radiation dose reduction, the following was used: automated exposure control, adjustment of mA and/or kV according to patient size. COMPARISON: None. FINDINGS: Image quality: Excellent. CSF spaces: Basal cisterns are patent. No extra-axial fluid collections. The ventricles are symmetric in size and shape. Brain: No intracranial bleeds or masses. There is cerebral volume loss for age, with resultant ventricular and sulcal prominence. There are periventricular and deep white matter chronic small vessel ischemic changes. There is intracranial internal carotid artery atherosclerosis. Skull and face: Calvarium and visualized facial bones appear intact, without suspicious lesions. Sinuses: Visualized sinuses and mastoids are clear. IMPRESSION: Mild microvascular atherosclerotic change within the deep white matter of each hemisphere, expected for age. No trauma found. Dictated by: Michael Tolbert M.D. on 02/07/2023 at 20:10 Approved by: Michael Tolbert M.D. on 02/07/2023 at 20:11
--- NOTE | 2023-02-07 16:19 | P.PN_ITS ---
Subjective Subjective Interval history: Patient very anxious and tearful today. Having some mild disorientation. UA and head CT ordered. Hurtado to be placed. Exam Vital Signs (past 8 hours): - 02/07/23 12:00 02/07/23 15:19 Temperature 98.7 F Pulse Rate 90 Respiratory Rate 16 Blood Pressure 111/64 Pulse Oximetry 96 Oxygen Delivery Method Room Air Oxygen Flow Rate 0 Oxygen Delivery Method Room Air Oxygen Flow Rate 0 Narrative Exam Narrative: GEN: no acute distress, tearful and anxious HEENT: moist mucous membranes, PERRL NECK: trachea midline, no JVD CV: regular rate and rhythm, no murmurs PULM: clear bilaterally ABD: soft, nontender, nondistended, no organomegaly EXT: R leg externally rotated NEURO: awake, alert, oriented, no focal deficits Extrem Other: Tenderness over right hip to palpation. Pre-existing swelling over left and right feet. Objective Labs 02/07/23 07:12 02/07/23 07:20 Labs: Laboratory Results - last 24 hr 02/06/23 02/07/23 02/07/23 16:30 07:12 07:20 WBC 8.8 10.2 RBC 4.78 4.55 Hgb 15.8 15.0 Hct 45.7 43.3 MCV 95.5 95.2 MCH 33.0 32.8 MCHC 34.6 34.5 RDW 13.7 13.6 Plt Count 168 151 Neut % (Auto) 73.7 73.1 Lymph % (Auto) 17.0 L 14.6 L [place] % (Auto) 7.4 9.2 Eos % (Auto) 1.2 L 2.1 Baso % (Auto) 0.7 1.0 Neut # (Auto) 6500 7500 H Lymph # (Auto) 1500 1500 [place] # (Auto) 700 900 Eos # (Auto) 100 200 Baso # (Auto) 100 100 PT 18.5 H INR 1.6 H Sodium 137 137 Potassium 3.7 3.7 Chloride 100 102 Carbon Dioxide 28 27 BUN 24 H 24 H Creatinine 1.03 1.02 Estimated GFR 56 L 57 L BUN/Creatinine Ratio 23.3 H 23.5 H Glucose 154 H 135 H Calcium 9.4 8.9 Magnesium 2.0 Total Bilirubin 0.9 AST 29 ALT 22 Alkaline Phosphatase 64 Total Protein 7.7 Albumin 2.7 L Globulin 5.0 H Albumin/Globulin Ratio 0.5 L [facility] Medical History Hyperlipidemia HTN (hypertension) Lower back pain Osteoarthritis of lumbar spine Lumbar strain Surgical History S/P skin biopsy Social History household members: none Smoking Status: Never smoker alcohol intake: current Assessment & Plan Assessment & Plan narrative: # right hip fracture -from ground level fall all trying on costume -hip x-ray with fracture of right proximal femur -ortho consulted, NPO at midnight for surgery on 02/08 -pain control # atrial fibrillation -currently rate controlled -hold home Eliquis, last dose was at 0730 on 02/06 -continue metoprolol # hypertension -no longer on lisinopril/HCTZ -continue metoprolol and spironolactone # hyperlipidemia -continue home statin # type 2 diabetes -hold home metformin -low-dose sliding scale insulin # anxiety -ativan PRN # confusion, not present on admission -check UA and head CT -A/Ox2 Code status is full code. DVT prophylaxis with SCDs. Proxy is daughter Sydni. I have reviewed home meds and used all available resources to reconcile the home meds. Dispo: Pending hip surg on 02/08. May need SNF. Quality VTE Deep Vein Thrombosis/Pulmonary Embolism Present on Admission: No
[2023-02-07 16:30] LABS: Appearance Urine UA CLEAR; Bilirubin Urine UA NEGATIVE (NEGATIVE); Color Urine UA YELLOW; Glucose Urine UA NEGATIVE (Negative); Ketones Urine UA NEGATIVE (NEGATIVE); Leukocyte Esterase Urine UA 1+ (NEGATIVE); Nitrite Urine UA POSITIVE (Negative); Occult Blood Urine UA 1+ (Negative); Protein Urine UA NEGATIVE (Negative); Specific Gravity Urine UA 1.025 (1.000-1.035); Urobilinogen Urine UA 0.2 E.U./dL (0.2)
[2023-02-07 16:32] LABS: pH Urine UA 5.5 (4.5-8.0)
[2023-02-07 16:49] LABS: Bacteria Urine Many (>30); Culture Indicated Urine Specimen Cultured; RBC Urine 1-5/HPF (0-5/HPF); Squamous Epithelial Cell Urine 0-1 /HPF (0-5/HPF); WBC Urine 10-30/HPF (0-5/HPF)
[2023-02-07] MEDS: cefTRIAXone 1,000 MG in SODIUM CHLORIDE 0.9% 100 ML 200 MG IV (17:52)
--- NOTE | 2023-02-07 19:40 | PC.NURSE ---
Change in LOC: Pt oriented this am, knew where she was and why she was here. Knew the day, date, year, ect. Then this afternoon she awoke and she was very disoriented and hallucinating. SI slept all night in that chair, what do you mean I'm in the hospital? I'm not in a bed, I'm home! Pt very adamant about this. made aware of change in level of cons, she does have a bruise to the rt eye and earlier complained of neck soreness on the right although she denies any pain now. She denies she has ever hit her head with this fall. She does have a turner ordered but has refused it several times. Clean catch UA obtained and sent to lab. MD aware of results and antibiotics were started. did order a CT scan but she is adamant in her refusal, even weeping. Called CT to ask for some time to calm pt down. They are agreeable. Pt has had several family members in her room who have held her hand and reorient her as well. Dtr came in to see pt (The grandchildren had been here earlier) The dtr reports when pt had her last surgery she started hallucinating on that admission as well. Pt much calmer with dtr in the room. Willing to go down now for CT. Pt also had temp elevation to 100.3. made aware, see order for blood cultures. MD Springer has seen pt several times as well as he has spoken with the family. The patient has been 1:1 with staff or family for the last 6 hours for safety. Bed alarm is on. Pt is asking for help to get oob, but with hip fracture she is stops trying as soon as she tries to move. Cont to keep patient safe, cont w/poc.
[2023-02-07] MEDS: ATORVASTATIN 20 MG TABLET 10 MG PO (21:35)
[2023-02-07] MEDS: METOPROLOL ER 50 MG TABLET 100 MG PO (21:36)
[2023-02-08] VITALS (16 sets, daily range): BP systolic 102–137; BP diastolic 40–83; PULSE 66–98; RESP 12–24; TEMP 35.8–37.1; O2SAT 90–98
--- NOTE | 2023-02-08 | DI.RAD.S_ITS ---
PROCEDURE: XR FEMUR RT MIN 2V INDICATIONS: Surgery TECHNIQUE: 2 views of the femur were acquired. COMPARISON: None. FINDINGS: Fluoroscopic guidance utilized for a right femur screw and abel fixation. IMPRESSION: Fluoroscopic guidance. Dictated by: Lincoln Bangura M.D. on 02/08/2023 at 19:49 Approved by: Lincoln Bangura M.D. on 02/08/2023 at 19:50
[2023-02-08] MEDS: OXYCODONE IR 5 MG TABLET PO ×2 (01:41→10:38)
[2023-02-08 04:58] LABS: Add Manual Diff / Slide Review NO; Basophils Absolute Auto 100 /uL (0-100); Basophils Percent Auto 0.8 % (0-2); Eosinophils Absolute Auto 0 /uL (0-450); Eosinophils Percent Auto 0.2 % (2-4); Hematocrit 40.3 % (36-46); Hemoglobin 13.7 g/dL (12.0-16.0); Lymphocytes Absolute Auto 1300 /uL (1100-4500); Lymphocytes Percent Auto 11.2 % (25-40); Mean Corpuscular HGB Conc 33.9 % (30-36); Mean Corpuscular Hemoglobin 32.6 PG (26-34); Mean Corpuscular Volume 96.1 fL (80-100); Monocytes Absolute Auto 1600 /uL (0-900); Monocytes Percent Auto 13.7 % (3-14); Neutrophils Absolute Auto 8800 /uL (1500-7000); Neutrophils Percent Auto 74.1 % (50-75); Platelet Count 139 X10^3/uL (150-400); Red Cell Distribution Width 13.8 % (11.6-14.8); White Blood Cell Count 11.8 X10^3/uL (4.5-11.0)
[2023-02-08 05:09] LABS: BUN Creatinine Ratio 23.1 (6-22); Blood Urea Nitrogen 24 mg/dL (7-17); Calcium 9.1 mg/dL (8.4-10.2); Carbon Dioxide 23 mmol/L (22-32); Chloride 101 mmol/L (98-107); Estimated Glomerular Filt Rate 55 mL/min (>60); Glucose 190 mg/dL (80-110); HEMOLYSIS < 15 (0-50); Potassium 4.2 mmol/L (3.4-5.1); Sodium 133 mmol/L (137-145)
--- NOTE | 2023-02-08 07:29 | DI.RAD.S_ITS ---
PROCEDURE: XR CHEST 1V INDICATIONS: fever TECHNIQUE: One view of the chest was acquired. COMPARISON: None. FINDINGS: Surgical changes and devices: None. Lungs and pleura: Lungs are clear. No pleural effusions or pneumothorax. Mediastinum: Mediastinal contours appear normal. Heart size is enlarged. Bones and chest wall: No suspicious bony lesions. Overlying soft tissues appear unremarkable. IMPRESSION: Portable chest within normal limits for age. Dictated by: Lincoln Bangura M.D. on 02/08/2023 at 11:44 Approved by: Lincoln Bangura M.D. on 02/08/2023 at 11:44
[2023-02-08] MEDS: LACTATED RINGERS 1,000 ML 100 ML IV (08:37)
[2023-02-08] MEDS: ACETAMINOPHEN 325 MG TABLET 650 MG PO (10:38)
[2023-02-08 13:55] LABS: Cholesterol 119 mg/dL (140-199); HDL Cholesterol 32 mg/dL (40-60); LDL Cholesterol Calculated 62 mg/dL (<100); Triglycerides 124 mg/dL (35-150)
[2023-02-08 13:56] LABS: Hemoglobin A1C% w Est Avg Glu 7.3 % (4.0-6.0)
--- NOTE | 2023-02-08 14:06 | PC.NURSE ---
Day shift: Pt off unit at approx 1405 to OR for procedure. Mentioned to MANAGER WATER WASTEWATER and the Pt that a Hurtado being placed may be helpful.
[2023-02-08 14:28] LABS: TSH w/ Reflex to FT4 0.51 uIU/mL (0.47-4.68)
--- NOTE | 2023-02-08 15:29 | PM.PREOP ---
Pre-operative Note Interval Note History & Physical reviewed/Exam performed by Physician: Yes Changes to H&P: No H&P completed within 30 days and has changed as indicated here:: Patient had some nausea and increased pain today. Her urine looked positive for a UTI. She had a chest x-ray which did not show a pneumonia. She is sensitive to narcotics and was more confused overnight. She is better this afternoon.
--- NOTE | 2023-02-08 15:30 | P.OP_ITS ---
Operative Date/Time/Diagnoses Date of procedure: 02/08/23 Time of procedure: 15:30 Pre-op diagnosis: Right subtrochanteric hip fracture Post-op diagnosis: same Procedure & Clinicians Procedure: Intramedullary abel right hip for right subtrochanteric femoral fracture Same procedure as scheduled: Yes Indications: This is a 77-year-old with bad peripheral neuropathy who fell and sustained a 2 right subtrochanteric hip fracture. She is chronically on anticoagulants. We postponed her surgery for a day as she has impaired renal function and is on anticoagulants was little over anticoagulated. She is now brought to the operating room for intramedullary rodding of her right femur. The options risks benefits and procedure were discussed in detail with the patient. Surgeon: Latoya Isaacs System Administration Manager: Doe Salvador Anesthesia Type: General Operative Notes Findings: Subtrochanteric fracture, adequate bone, good reduction Closure Type: primary Specimen(s): none sent Prosthetic devices, grafts, tissues, transplants, or devices: Isaacs and nephew intramedullary tri Gen inner lange 11.5 by 32 cm, 85 mm proximal locking screw, 2 distal interlocking screws nail long Estimated Blood Loss (mL): 250 Blood products transfused: none Procedure in detail: Patient was brought the operating room. She underwent induction of general anesthesia. A time-out was performed. She was carefully transferred to the fracture table. She was positioned intraoperatively. She was given IV antibiotics. She was prepped and draped standard sterile fashion. Lateral skin incision was made dissection was carried out through skin and subcutaneous tissues. A PA was used in the procedure for intraoperative positioning and assistance with with the patient. She was noted to have I significant problem with obesity with a BMI of 47. PA assistance was helpful for retracting subcutaneous tissues and allowing safe implantation of the femoral abel. A pin was carefully advanced into the greater trochanter after incising the fascia. Position of the pin was confirmed radiographically. Proximal femoral fragment was then reamed. Measurement was taken for a long nail. The canal was then carefully reamed in preparation for abel implantation. Isaacs and Nephew abel was selected. It was carefully advanced down into the canal. Guide abel was removed. Proximal interlocking screws were placed. The lag screw was placed as well as the interlocking screw. There was good reduction of the fracture. Distal interlocking screws were placed. Two screws were placed distally. We meticulously used C-arm throughout the procedure to confirm the reduction and the position of the abel. Distal interlocking was performed without difficulty. The wounds were irrigated with normal saline and closed with a combination of Vi cryl and barbed stitches for the proximal hip wound as well as skin molina. Local anesthesia both a combination of Marcaine and Exparel were carefully injected. The wounds were dressed sterilely. She was transferred to recovery room in satisfactory condition. Complications none. Complications: none Post-operative Condition: stable Disposition: Acute Care Plan for aftercare: Weight-bearing as tolerated on the right lower extremity. Okay to discharge to home or rehab depending upon how she does with physical therapy. I anticipate she likely will need rehab due to multiple medical problems peripheral neuropathy, diabetes, mild impaired renal function and goal to optimize her long-term result. She has a very motivated and helpful family. Follow-up 10-14 days postoperatively with new x-rays. Use a walker at all times. Fall precautions.
--- NOTE | 2023-02-08 16:40 | SUR.OPER ---
Supine on padded [place] table with bilateral legs secured in padded positioning boots and suspended in positioning spars, operative leg in traction per surgeon. Head on one pillow. Arm on non-operative side secured on padded armboard <90 degrees abduction. Arm on operative side padded and resting across chest then secured with tape over sheet. Padded perineal post in place per surgeon.
[2023-02-08] MEDS: BUPIVACAINE 0.25% (PF) 30 ML, EPINEPHrine 0.15 MG INJ (17:03)
--- NOTE | 2023-02-08 17:04 | P.PN_ITS ---
Subjective Subjective Interval history: Patient awaiting surgery today. Family at bedside and questions were answered. She is more oriented today. Exam Vital Signs (past 8 hours): - 02/08/23 12:00 02/08/23 14:31 Temperature 97.0 F L 98.0 F Pulse Rate 72 83 Respiratory Rate 16 16 Blood Pressure 102/40 L 104/59 L Pulse Oximetry 97 98 Oxygen Delivery Method Room Air Oxygen Delivery Method Room Air Oxygen Flow Rate 0 Narrative Exam Narrative: GEN: no acute distress, calm HEENT: moist mucous membranes, PERRL NECK: trachea midline, no JVD CV: regular rate and rhythm, no murmurs PULM: clear bilaterally ABD: soft, nontender, nondistended, no organomegaly EXT: R leg externally rotated NEURO: awake, alert, oriented, no focal deficits Extrem Other: Tenderness over right hip to palpation. Pre-existing swelling over left and right feet. Objective Labs 02/08/23 04:35 02/08/23 04:35 Labs: Laboratory Results - last 24 hr 02/08/23 04:35 WBC 11.8 H RBC 4.20 Hgb 13.7 Hct 40.3 MCV 96.1 MCH 32.6 MCHC 33.9 RDW 13.8 Plt Count 139 L Neut % (Auto) 74.1 Lymph % (Auto) 11.2 L [place] % (Auto) 13.7 Eos % (Auto) 0.2 L Baso % (Auto) 0.8 Neut # (Auto) 8800 H Lymph # (Auto) 1300 [place] # (Auto) 1600 H Eos # (Auto) 0 Baso # (Auto) 100 Sodium 133 L Potassium 4.2 Chloride 101 Carbon Dioxide 23 BUN 24 H Creatinine 1.04 Estimated GFR 55 L BUN/Creatinine Ratio 23.1 H Glucose 190 H Hemoglobin A1c 7.3 H Calcium 9.1 Triglycerides 124 Cholesterol 119 L LDL Cholesterol, Calc 62 HDL Cholesterol 32 L TSH 0.51 PFSH Medical History Hyperlipidemia HTN (hypertension) Lower back pain Osteoarthritis of lumbar spine Lumbar strain Surgical History S/P skin biopsy Social History household members: none Smoking Status: Never smoker alcohol intake: current Assessment & Plan Assessment & Plan narrative: # right hip fracture -from ground level fall all trying on costume -hip x-ray with fracture of right proximal femur -ortho consulted, awaiting surg today 02/08 -pain control, avoid dilaudid as it makes her loopy # UTI -UA with pyuria, culture >100k GNB -rocephin IV x3 days # atrial fibrillation -currently rate controlled -hold home Eliquis, last dose was at 0730 on 02/06 -continue metoprolol # hypertension -no longer on lisinopril/HCTZ -continue metoprolol and spironolactone # hyperlipidemia -continue home statin # type 2 diabetes -hold home metformin -low-dose sliding scale insulin # anxiety -ativan PRN # confusion, not present on , now resolvedadmission -likely due to UTI and pain meds, head CT neg -A/Ox3 now Code status is full code. DVT prophylaxis with SCDs. Proxy is daughter Sydni. I have reviewed home meds and used all available resources to reconcile the home meds. Dispo: Pending hip surg on 02/08. Will likely need SNF. Quality VTE Deep Vein Thrombosis/Pulmonary Embolism Present on Admission: No
[2023-02-08] MEDS: BUPIVACAINE LIPOSOME 266 MG/20 ML VIAL INJ (17:05)
[2023-02-08] MEDS: TRANEXAMIC ACID 1,000 MG VIAL 2000 MG INJ (17:39)
--- NOTE | 2023-02-08 18:41 | DI.RAD.S_ITS ---
PROCEDURE: XR FEMUR RT MIN 2V INDICATIONS: postop TECHNIQUE: 2 views of the femur were acquired. COMPARISON: [facility], , XR FEMUR RT MIN 2V, 02/08/2023, 16:04. FINDINGS: Bones: Near anatomic alignment of the right femur, status post intramedullary abel and screw fixation. Soft tissues: Subcutaneous gas and edema, as expected. IMPRESSION: Interval right hip ORIF. Dictated by: Lincoln Bangura M.D. on 02/08/2023 at 19:50 Approved by: Lincoln Bangura M.D. on 02/08/2023 at 19:51
[2023-02-08] MEDS: INSULIN LISPRO 100 UNIT/ML 3ML VIAL SUBCUT (18:59)
[2023-02-08] MEDS: GLIMEPIRIDE 2 MG TABLET 4 MG PO (20:14)
[2023-02-08] MEDS: TRAMADOL 50 MG TABLET 100 MG PO (20:14)
[2023-02-08] MEDS: FUROSEMIDE 40 MG TABLET PO (20:14)
[2023-02-08] MEDS: SENNOSIDES 8.6 MG TABLET 17.2 MG PO (20:15)
[2023-02-08] MEDS: DOCUSATE 100 MG CAPSULE PO (20:15)
[2023-02-08] MEDS: allopurinoL 100 MG TABLET PO (20:15)
[2023-02-08] MEDS: CHOLECALCIFEROL (VITAMIN D3) 1,000 UNIT TABLET 5000 UNIT PO (20:15)
[2023-02-08] MEDS: CEFAZOLIN 2 GM/100 ML PREMIX 100 ML IV (23:05)
[2023-02-09] VITALS (7 sets, daily range): BP systolic 116–125; BP diastolic 54–66; PULSE 86–111; RESP 18–22; TEMP 36.1–36.5; O2SAT 91–96
[2023-02-09 04:25] LABS: Add Manual Diff / Slide Review NO; Basophils Absolute Auto 100 /uL (0-100); Basophils Percent Auto 0.8 % (0-2); Eosinophils Absolute Auto 0 /uL (0-450); Hematocrit 37.7 % (36-46); Hemoglobin 12.8 g/dL (12.0-16.0); Lymphocytes Absolute Auto 600 /uL (1100-4500); Lymphocytes Percent Auto 4.5 % (25-40); Mean Corpuscular HGB Conc 33.9 % (30-36); Mean Corpuscular Hemoglobin 32.6 PG (26-34); Mean Corpuscular Volume 96.1 fL (80-100); Monocytes Absolute Auto 700 /uL (0-900); Monocytes Percent Auto 5.4 % (3-14); Neutrophils Absolute Auto 11600 /uL (1500-7000); Neutrophils Percent Auto 89.3 % (50-75); Platelet Count 128 X10^3/uL (150-400); Red Blood Cell Count 3.92 X10^6/uL (4.0-5.2); Red Cell Distribution Width 13.8 % (11.6-14.8)
[2023-02-09 04:42] LABS: BUN Creatinine Ratio 27.4 (6-22); Blood Urea Nitrogen 32 mg/dL (7-17); Carbon Dioxide 23 mmol/L (22-32); Chloride 100 mmol/L (98-107); Estimated Glomerular Filt Rate 48 mL/min (>60); Glucose 292 mg/dL (80-110); HEMOLYSIS < 15 (0-50); Potassium 4.5 mmol/L (3.4-5.1); Sodium 132 mmol/L (137-145)
[2023-02-09] MEDS: TRAMADOL 50 MG TABLET 100 MG PO (05:46)
[2023-02-09] MEDS: CEFAZOLIN 2 GM/100 ML PREMIX 100 ML IV (06:23)
--- NOTE | 2023-02-09 06:35 | PC.NURSE ---
pt to floor post hip surgery early in the shift; she was disoriented and mostly nonverbal on arrival; this morning she is awake and alert and oriented; she has been medicated twice for pain with tramadol to good effect; she is doing her incentive spirometer independently this morning and pulling approx 1500ml; she was on her home cpap from [id number]; she is currently on 05/17l/nc with an o2 sat of 94%
--- NOTE | 2023-02-09 07:43 | PM.PNPO.1 ---
Subjective Subjective Date Patient Seen: 02/09/23 Time Patient Seen: 07:43 Interval history: Patient's pain is mild. Denies fever or chills. No nausea or vomiting. Patient does live alone. Exam Vital Signs (past 8 hours): - 02/09/23 04:25 Temperature 97.0 F L Pulse Rate 111 H Respiratory Rate 22 Blood Pressure 117/54 L Pulse Oximetry 91 Oxygen Flow Rate 0 Oxygen Delivery Method Nasal Cannula Oxygen Flow Rate 0 Narrative Exam Narrative: 77-year-old female in no apparent distress resting comfortably in bed. Dressings are clean, dry and intact. Motor functions intact bilateral lower extremities. Sensation grossly intact to light touch bilateral lower extremities. Const General: cooperative and comfortable Nutritional Appearance: obese (BMI 47.2) Orientation: alert Resp Effort & Inspection: normal respiratory effort and able to speak in complete sentences Objective Labs 02/09/23 04:10 02/09/23 04:10 Labs: Laboratory Results - last 24 hr 02/08/23 02/09/23 04:35 04:10 WBC 13.0 H RBC 3.92 L Hgb 12.8 Hct 37.7 MCV 96.1 MCH 32.6 MCHC 33.9 RDW 13.8 Plt Count 128 L Neut % (Auto) 89.3 H Lymph % (Auto) 4.5 L [place] % (Auto) 5.4 Eos % (Auto) 0.0 L Baso % (Auto) 0.8 Neut # (Auto) 08109 H Lymph # (Auto) 600 L [place] # (Auto) 700 Eos # (Auto) 0 Baso # (Auto) 100 Sodium 132 L Potassium 4.5 Chloride 100 Carbon Dioxide 23 BUN 32 H Creatinine 1.17 H Estimated GFR 48 L BUN/Creatinine Ratio 27.4 H Glucose 292 H D Hemoglobin A1c 7.3 H Calcium 9.0 Triglycerides 124 Cholesterol 119 L LDL Cholesterol, Calc 62 HDL Cholesterol 32 L TSH 0.51 PFSH Medical History Hyperlipidemia HTN (hypertension) Lower back pain Osteoarthritis of lumbar spine Lumbar strain Surgical History S/P skin biopsy Social History household members: none Smoking Status: Never smoker alcohol intake: current Assessment & Plan Post-op Postoperative Procedures: Procedures Operation Date: 02/08/23 09:00 Actual Procedure Side Surgeon p Intramedullary Nailing Femur Right Latoya Isaacs MD Postoperative status narrative: Stable status post intramedullary abel right hip for right subtrochanteric femoral fracture. Postoperative plan narrative: Weightbearing as tolerated right lower extremity Use walker at all times, fall precautions Mobilize with physical therapy Follow-up in Orthopedics 10-14 days postop with new x-rays. Disposition home versus shelter facility. Likely will need shelter facility placement due to medical problems i.e. peripheral neuropathy, diabetes, impaired renal function Quality VTE Deep Vein Thrombosis/Pulmonary Embolism Present on Admission: No
[2023-02-09] MEDS: polyethylene glycoL 3350 17 GM POWD.PACK PO (10:00)
[2023-02-09] MEDS: DOCUSATE 100 MG CAPSULE PO ×2 (10:08→21:00)
[2023-02-09] MEDS: CHOLECALCIFEROL (VITAMIN D3) 1,000 UNIT TABLET 5000 UNIT PO (10:09)
[2023-02-09] MEDS: FUROSEMIDE 40 MG TABLET PO (10:09)
[2023-02-09] MEDS: GLIMEPIRIDE 2 MG TABLET 4 MG PO ×2 (10:09→21:01)
[2023-02-09] MEDS: OXYCODONE IR 5 MG TABLET PO ×2 (12:10→14:43)
[2023-02-09] MEDS: METOPROLOL ER 50 MG TABLET 100 MG PO (12:46)
[2023-02-09] MEDS: levoFLOXacin 250 MG TABLET 750 MG PO (13:12)
--- NOTE | 2023-02-09 14:02 | PT.IIE ---
Current Diagnoses Type 2 diabetes mellitus without complications (02/06/23) Polyneuropathy, unspecified (02/06/23) Essential (primary) hypertension (02/06/23) Disorder of kidney and ureter, unspecified (02/06/23) Unspecified fracture of right femur, initial encounter for closed fracture (02/06/23) Surgery Performed Operation Date: 02/08/23 09:00 Actual Procedures p Intramedullary Nailing Femur(Right) - Latoya Isaacs MD Surgical History (Last Reviewed 02/09/23 @ 07:45 by Chai Peter PA-C) S/P skin biopsy Medical History (Last Reviewed 02/09/23 @ 07:45 by Chai Peter PA-C) HTN (hypertension) Hyperlipidemia Lower back pain Lumbar strain Osteoarthritis of lumbar spine Physical Therapy Inpatient Evaluation/Re-Eval M1 PT/OT-IP Prior Functional Status Start: 02/09/23 07:56 Freq: NEEDED Status: Active Protocol: Document 02/09/23 13:20 AMB (Rec: 02/09/23 14:01 AMB [id number]) Medical Review Prior Functional Status Medical History Reviewed Yes Mobility and Gait Uses a 4WW at all times Social History Household Members none Living Arrangements Mobile home Number of Floors (Floors) One Floor Home Environment Walk in Shower Home Equipment Shower Seat without Backrest Employment Status Retired Additional Social History Comment Lives alone, does have a daughter and grandson who live locally, was no longer driving M2 PT-IP Current Condition Start: 02/09/23 07:56 Freq: NEEDED Status: Active Protocol: Document 02/09/23 13:20 AMB (Rec: 02/09/23 14:01 AMB [id number]) Physical Therapy Current Condition Current Condition Evaluation Date 02/09/23 Treatment Diagnosis fall; R hip fx c intramedullary abel Onset Date 02/06/23 M3 PT-IP Subjective Start: 02/09/23 07:56 Freq: NEEDED Status: Active Protocol: Document 02/09/23 13:20 AMB (Rec: 02/09/23 14:01 AMB [id number]) Subjective Physical Therapy Visit Type Type Initial Evaluation Visit Start Time 10:15 Visit Stop Time 11:00 Total Visit Minutes 45 Physical Therapy Visit Comments Patient Comments Patient is lying down in bed and her daughter and grandson provide some of the history. Patient was living alone at home until she fell backwards and broke her R femur, she is on day 1 after surgery. Therapy Pain Assessment Pain Present Pain Present Reassessed Location Right Hip Intensity 5 Scale Used Numeric (0 - 10) M4 PT-IP Mobility and Gait Start: 02/09/23 07:56 Freq: NEEDED Status: Active Protocol: Document 02/09/23 13:20 AMB (Rec: 02/09/23 14:01 [facility] [id number]) PT-Bed Mobility Assessment Rolling Type of Rolling Log Rolling,Bilateral Level of Assist 2 Person Assistance Supine to Sit Supine to Sit Moderate Assistance,1 Person Assistance,Head of Bed Elevated,Bedrails Sit to Supine Sit to Supine Moderate Assistance,2 Person Assistance,Head of Bed Elevated,Bedrails Scooting Scooting to Edge of Bed Moderate Assistance Scooting Up and Down in Bed Dependent PT-Transfer Assessment Sit to and From Stand Sit to and from Stand Moderate Assistance,2 Person Assistance,Use of Upper Extremities Equipment Transfer Assistive Device Bed Rail,Gait Belt,Front Wheeled Walker Transfers Transfer Destination Bed Comments Mobility Comments Sandra was quite painful. She has baseline back and bilateral knee pain that was very limiting for her. Her R hip surgery is painful too. 5 /10. Pt required ModA for bed mobility to get sitting edge of bed. RN came in to assist with getting a new brief on and then assisted with rest of mobility. Pt was able to stand edge of bed for approximately 2 minutes until L knee gave way and she needed to sit down quite abruptly. She then required 2 person assist back into bed and assist with rolling to get brief back on. She used 3L of O2 via nasal cannula and spO2 was in the mid 90s. We had tried to go off of O2 but SpO2 went down to 85-88 with mobility so put O2 back on. Gait Assessment Comments Gait Comments not assessed PT-Balance Assessment Sitting Balance and Reactions Static Sitting Balance Ability Fair Standing Balance and Reactions Static Standing Balance Ability Poor M5 PT-IP Objective Assessments Start: 02/09/23 07:56 Freq: NEEDED Status: Active Protocol: Document 02/09/23 13:20 AMB (Rec: 02/09/23 14:01 AMB [id number]) Orientation Orientation/Cognition Level of Alertness Alert Gross Range of Motion Lower Extremity ROM Assessment Bilaterally Impaired Strength Lower Extremity Strength Assessment Bilaterally Impaired Comments Strength Comments Limited with peripheral neuropathy at the ankles. Knees are painful bilaterally but worse on the R. L hip limits strength, unable to move L hip against gravity. M6 PT-IP Treatment Start: 02/09/23 07:56 Freq: NEEDED Status: Active Protocol: Document 02/09/23 13:20 AMB (Rec: 02/09/23 14:01 AMB [id number]) Physical Therapy Treatment Education Education Provided Weight Bearing Status,Safety M7 PT-IP Assessment and Plan Start: 02/09/23 07:56 Freq: NEEDED Status: Active Protocol: Document 02/09/23 13:20 AMB (Rec: 02/09/23 14:01 AMB [id number]) PT Summary Assessment and Plan Potential Rehabilitation Potential Good Status of Condition at Evaluation Evolving Summary Impairments Pain,Strength,Balance,Bed Mobility,Transfers,Gait, Activity Tolerance Assessment Summary Sandra is WBAT s/p R femur intramedullary abel surgery after a fall at home. Previously she was living independently, but at this point it is taking 1-2 people to assist her with bed mobility and she would benefit from SNF rehab to improve her bed mobility and gait before she would be safe to return home. She required ModAx2 to sit edge of bed and stand, she did not take any steps today to pain and the L knee giving way. She will benefit from SNF stay when medically stable. Goals Bed Mobility Goal Minimal Assistance Transfer Goal Moderate Assistance Gait Goal Moderate Assistance,Front Wheel Walker Gait Distance 20 Days to Meet Goals 5 Frequency of Treatment Frequency Of Treatment Once a Day Treatment Plan Physical Therapy Treatment Plan Bed Mobility Training,Transfer Training,Gait Training Weight Bearing Status Weight Bearing Status Weight Bear as Tolerated Recommendations To Nursing Amount of Assist Needed 2 Person Assist Discharge Recommendations PT Discharge Recommendations SNF Rehab Transportation Needs at Discharge Wheelchair/Cabulance
--- NOTE | 2023-02-09 14:39 | OT.IP.EVAL ---
Current Diagnoses Type 2 diabetes mellitus without complications (02/06/23) Polyneuropathy, unspecified (02/06/23) Essential (primary) hypertension (02/06/23) Disorder of kidney and ureter, unspecified (02/06/23) Unspecified fracture of right femur, initial encounter for closed fracture (02/06/23) Surgery Performed Operation Date: 02/08/23 09:00 Actual Procedures p Intramedullary Nailing Femur(Right) - Latoya Isaacs MD Past Medical History (Last Reviewed 02/09/23 @ 07:45 by Chai Peter PA-C) HTN (hypertension) Hyperlipidemia Lower back pain Lumbar strain Osteoarthritis of lumbar spine Surgical History (Last Reviewed 02/09/23 @ 07:45 by Chai Peter PA-C) S/P skin biopsy Occupational Therapy Inpatient Evaluation/Re-Eval M1 PT/OT-IP Prior Functional Status Start: 02/09/23 07:56 Freq: NEEDED Status: Active Protocol: Document 02/09/23 16:02 CGR (Rec: 02/09/23 16:22 CGR [id number]) Medical Review Prior Functional Status Medical History Reviewed Yes Communication Pt is an effective verbal communicator. Mobility and Gait Uses a 4WW at all times Activities of Daily Living and IADL's Pt states that she was IDN for all ADLS and her daughter did all of her grocery shopping. Pt was able to dress, bathe, and perform cooking/cleaning. Social History Household Members none Living Arrangements Mobile home Number of Floors (Floors) One Floor Number of Stairs To Enter/Railing? ramp to enter Home Environment High Toilet,Walk in Shower, Ramp Home Equipment Four Wheel Walker,Quad Cane, Shower Seat with Backrest,Hand Held Shower,Grab Bars Near Toilet,Grab Bars In Shower Employment Status Retired Additional Social History Comment Lives alone, does have a daughter and grandson who live locally. Daughter does all of the driving. Pt also has a transport chair. M2 OT-IP Current Condition Start: 02/09/23 16:01 Freq: Status: Active Protocol: Document 02/09/23 16:02 CGR (Rec: 02/09/23 16:22 CGR [id number]) Occupational Therapy Current Condition Current Condition Evaluation Date 02/09/23 Treatment Diagnosis R hip fx s/p R IM nailing Diagnosis Onset Date 02/06/23 Weight Bearing Status Weight Bearing Status Weight Bear as Tolerated M3 OT- IP Subjective and Pain Start: 02/09/23 16:01 Freq: Status: Active Protocol: Document 02/09/23 16:02 CGR (Rec: 02/09/23 16:22 CGR [id number]) OT- Subjective Occupational Therapy Visit Type Type Initial Evaluation Visit Start Time 13:50 Visit Stop Time 14:39 Total Visit Minutes 49 Notes Pt requesting [place] [facility] [place] OT Pain Assessment Pain When Pain Assessed During Mobility Pain Present Pain Present Pain Reported Location Back Scale Used did not rate Management Techniques Distraction,Modification of Treatment,Re-positioning Right Hip Scale Used did not rate Management Techniques Distraction,Modification of Treatment,Re-positioning M4 OT- IP ADL's Start: 02/09/23 16:01 Freq: Status: Active Protocol: Document 02/09/23 16:02 CGR (Rec: 02/09/23 16:22 CGR [id number]) OT [id number] Comments OT Self-Feeding Comments not meal time OT ADL-Grooming Comments OT Grooming Comments not performed, pt declined OT ADL-Oral Care Comments Oral Care Comments not performed, pt declined OT ADL-Dressing General Eval Lower Body Dressing Ability Total Assistance Areas Needing Assistance Socks OT ADL-Toileting General Evaluation Toileting Ability Total Assistance Areas Needing Assistance Manage Clothing,Perform Perineal Hygiene Comments OT Toileting Comments Pt urinated seated on toielt but was unable to perform self peircare OT ADL-Bathing Comments OT Bathing Comments not performed M5 OT- IP IADL's Start: 02/09/23 16:01 Freq: Status: Active Protocol: Document 02/09/23 16:02 CGR (Rec: 02/09/23 16:22 CGR [id number]) OT-Instrumental Activities of Daily Living Deficits IADL Deficits Identified Deficits Home Safety Awareness Awareness of Need for Assistance at Home Good Awareness Ability to Problem Solve Emergency Able to Problem Solve Situations Medication Management Medication Management No Deficits Identified Money Management Money Management No Deficits Identified Meal Preparation Meal Preparation Comments unable to perform for self at this time Internet Sourcer Internet Sourcer Comments unable to perform for self at this time Driving Driving Comments pt does not drive at baseline M6 OT- IP Functional Cognition Start: 02/09/23 16:01 Freq: Status: Active Protocol: Document 02/09/23 16:02 CGR (Rec: 02/09/23 16:22 CGR [id number]) Cognitive Factors Limiting Selfcare Function Cognitive Ability Level of Alertness Alert Patient Orientation Name,Age,Birthday,Month,Date, Year,Day of Week,Place, Situation Attention Span Ability Capable of Focused Attention, Capable of Sustained Attention Ability to Follow Commands Able to Follow One Step Commands with Increased Time, Able to Follow One Step Commands with Repetition OT- Vision and Hearing OT- Hearing Assessment OT- Hearing Assessment WFL OT- Vision Assessment Visual Acuity Glasses All The Time Visual Attentiveness WFL Occular Pursuits WFL Visual Convergence WFL M7 OT- IP Mobility and Balance Start: 02/09/23 16:01 Freq: Status: Active Protocol: Document 02/09/23 16:02 CGR (Rec: 02/09/23 16:22 CGR [id number]) OT- Bed Mobility Assessment Supine to Sit Supine to Sit Assist Moderate Assistance,Maximum Assistance,1 Person Assistance ,Head of Bed Elevated,Bedrails Scooting Scooting to Edge of Bed Maximum Assistance,Total Assistance,1 Person Assistance OT-Transfer Assessment Sit to and From Stand Sit to and from Stand Maximum Assistance,2 Person Assistance Transfers Transfer Ability Maximum Assistance,2 Person Assistance Technique Transfer Destination Bed,Bedside Commode Transfer Technique Stand Step Pivot Devices Transfer Assistive Devices Gait Belt,Front Wheeled Walker Comments Mobility Comments PT transfered from the bed to the BSC with max x 2 and difficulty. Pt exhibits significant anxiety with mobility. Pt attempted sit to stand x2 for repositioning on the bSC. Pt was unable to get fully into standing. OT- Balance Assessment Sitting Balance and Reactions Static Sitting Balance Ability Good Dynamic Sitting Balance Ability Fair M8 OT- IP Objective Assessments Start: 02/09/23 16:01 Freq: Status: Active Protocol: Document 02/09/23 16:02 CGR (Rec: 02/09/23 16:22 CGR [id number]) OT Gross Range of Motion Upper Extremity Range of Motion Assessment Within Functional Limits OT Strength Upper Extremity Strength Assessment Bilaterally Impaired Comments Strength Comments 3+/5 OT- Coordination Assessment Upper Extremity Finger to Nose Test Within Functional Limits Finger Tapping Test Within Functional Limits OT-Muscle Tone Assessment Muscle Tone WNL Yes OT Sensation Assessment Comments Summary Comments PT states numbness to B feet and finger tips at her baseline Edema Edema Present Edema Comments noted to the CLARA Chou OT- IP Assessment and Plan Start: 02/09/23 16:01 Freq: Status: Active Protocol: Document 02/09/23 16:02 CGR (Rec: 02/09/23 16:22 CGR [id number]) OT Summary Assessment and Plan Potential Rehabilitation Potential Good Analytic Complexity at Evaluation High Summary OT Impairments Pain,Strength,Balance, Sensation,Functional Mobility, Grooming,Dressing,Toileting, Bathing,Toilet Transfers, Shower Transfers,Activity Tolerance Progress Towards Goals Slow Progress due to Pain,Slow Progress due to Medical Issues,Slow Progress due to Activity Tolerance Assessment Summary Pt presents as a high compelxity evaluation s/p admit for fall with L hip fx. Pt exhibits significant anxiety with all movement. Pt transfered from bed to BSC but then required the lift to return to the chair. Pt left sitting up in chair at end of session. Call button within reach and all needs at time met. Goals Grooming Goal Independent Dressing Goal Independent Toileting Goal Independent Bathing Goal Independent Toilet Transfer Goal Standby Assistance Shower Transfer Goal Independent Days to Meet Goals 30 Frequency of Treatment Frequency Of Treatment Once a Day Treatment Plan OT Treatment Plan ADL Training,Functional Mobility,Patient/Family Education Other Treatment Recommendations and Next ADLs seated in chair, [facility] [place] Focus transfer Discharge Recommendations OT Discharge Recommendations SNF Rehab Transportation Needs at Discharge Wheelchair/Cabulance
--- NOTE | 2023-02-09 14:48 | CM.DPC ---
Addendum entered by JANY Lawson 02/09/23 15:30: ADD: Call from pt's Dtr/DPOA Zara who states their SNF preference is [facility] due to staff to pt ratio and SW updated that tentatively [facility] can transport around 1300 tomorrow 02/10. BF Original Note: DCP SNF Planning Per MD, pt might be medically stable to d/c to SNF today but family has concerns and questions. SW met bedside with pt, grandmichelle Christianson, and Dtr Zara and explained role and they discussed their concern that they do not feel pt is medically stable to d/c due to her ongoing oxygen needs (no home O2 at baseline), needing to have a bm, only worked with PT once today due to surgery last night. SW explained need to justify medical reason to keep pt hospital level of care vs discharge to a step down facility (SNF) that can continue to provide PT/OT and manage oxygen and medications etc.. SW inquired about SNF preference between [facility] and [facility] and family had questions regarding their PT/OT and care and SW encouraged them to call both facility admissions and provided the contact and requested they call ervin as pt likely would discharge by tomorrow if not today. SW spoke to [facility] and [facility] and confirmed that both can accept and [facility] has a private room available. SW discussed Medicare Rights and family hopeful to talk to the doctor and feel pt can likely d/c tomorrow 02/10 and they will call SW ervin with SNF preference for tomorrow. SW updated RN and MD and [facility] and [facility]. Plan: SW to follow closely for SNF preference from family towards plan of d/c to SNF tomorrow 02/10 before safe return home. JANY Lawson
--- NOTE | 2023-02-09 17:06 | P.PN_ITS ---
Subjective Subjective Date Patient Seen: 02/09/23 Time Patient Seen: 08:00 Interval history: She worked with PT. They recommended SNF. Her pain is controlled. She is not confused. Her daughter wants her to stay in the hospital so that she can get used to the idea of being discharged to SNF. The patient does not want to leave because her knee buckled when working with PT, and because her daughter is going on vacation. Exam Vital Signs (past 8 hours): - 02/09/23 12:46 02/09/23 15:00 02/09/23 15:00 Pulse Rate 107 H 102 H Blood Pressure 119/66 Pulse Oximetry 94 94 Oxygen Delivery Method Nasal Cannula Oxygen Flow Rate 2 Oxygen Delivery Method Nasal Cannula Oxygen Flow Rate 2 Narrative Exam Narrative: GEN: no acute distress EXT: hip tender to palpation, dressing clean, dry intact NEURO: awake, alert, oriented Objective Labs 02/09/23 04:10 02/09/23 04:10 Labs: Laboratory Results - last 24 hr 02/09/23 04:10 WBC 13.0 H RBC 3.92 L Hgb 12.8 Hct 37.7 MCV 96.1 MCH 32.6 MCHC 33.9 RDW 13.8 Plt Count 128 L Neut % (Auto) 89.3 H Lymph % (Auto) 4.5 L [place] % (Auto) 5.4 Eos % (Auto) 0.0 L Baso % (Auto) 0.8 Neut # (Auto) 66081 H Lymph # (Auto) 600 L [place] # (Auto) 700 Eos # (Auto) 0 Baso # (Auto) 100 Sodium 132 L Potassium 4.5 Chloride 100 Carbon Dioxide 23 BUN 32 H Creatinine 1.17 H Estimated GFR 48 L BUN/Creatinine Ratio 27.4 H Glucose 292 H D Calcium 9.0 PFSH Medical History Hyperlipidemia HTN (hypertension) Lower back pain Osteoarthritis of lumbar spine Lumbar strain Surgical History S/P skin biopsy Social History household members: none Smoking Status: Never smoker alcohol intake: current Assessment & Plan Assessment & Plan narrative: # right hip fracture -from ground level fall all trying on Halloween costume -hip x-ray with fracture of right proximal femur -ortho consulted, OR repair on 02/08 -pain control, avoid dilaudid as it causes confusion # UTI -UA with pyuria, culture >100k GNB -plan for antibiotics with po levaquin through 02/10 # atrial fibrillation -restart eliquis -continue metoprolol # hypertension -no longer on lisinopril/HCTZ -continue metoprolol and spironolactone # hyperlipidemia -continue home statin # type 2 diabetes -hold home metformin -low-dose sliding scale insulin # anxiety -ativan PRN # Acute metabolic encephalopathy, resolved -likely due to UTI and pain meds, head CT neg -A/Ox3 now Dispo: stable for SNF Quality VTE Deep Vein Thrombosis/Pulmonary Embolism Present on Admission: No
[2023-02-09] MEDS: OXYCODONE IR 10 MG TABLET PO (18:37)
[2023-02-09] MEDS: APIXABAN 5 MG TABLET PO (21:01)
[2023-02-09] MEDS: ATORVASTATIN 20 MG TABLET 10 MG PO (21:01)
[2023-02-09] MEDS: SENNOSIDES 8.6 MG TABLET 17.2 MG PO (21:02)
[2023-02-10] MEDS: LORazepam 2 MG/ML INJ 0.25 MG IV (04:12)
[2023-02-10 04:36] LABS: Add Manual Diff / Slide Review NO; Basophils Absolute Auto 0 /uL (0-100); Basophils Percent Auto 0.1 % (0-2); Eosinophils Absolute Auto 0 /uL (0-450); Hematocrit 37.1 % (36-46); Hemoglobin 12.6 g/dL (12.0-16.0); Lymphocytes Absolute Auto 800 /uL (1100-4500); Lymphocytes Percent Auto 5.6 % (25-40); Mean Corpuscular HGB Conc 33.9 % (30-36); Mean Corpuscular Hemoglobin 32.8 PG (26-34); Mean Corpuscular Volume 96.7 fL (80-100); Monocytes Absolute Auto 1500 /uL (0-900); Monocytes Percent Auto 10.2 % (3-14); Neutrophils Absolute Auto 12100 /uL (1500-7000); Neutrophils Percent Auto 84.1 % (50-75); Platelet Count 155 X10^3/uL (150-400); Red Blood Cell Count 3.83 X10^6/uL (4.0-5.2); Red Cell Distribution Width 13.8 % (11.6-14.8); White Blood Cell Count 14.3 X10^3/uL (4.5-11.0)
[2023-02-10 04:41] LABS: Blood Urea Nitrogen 45 mg/dL (7-17); Calcium 9.5 mg/dL (8.4-10.2); Carbon Dioxide 26 mmol/L (22-32); Chloride 96 mmol/L (98-107); Estimated Glomerular Filt Rate 44 mL/min (>60); Glucose 183 mg/dL (80-110); HEMOLYSIS < 15 (0-50); Potassium 4.4 mmol/L (3.4-5.1); Sodium 132 mmol/L (137-145)
[2023-02-10 04:54] VITALS: RESP 18
--- NOTE | 2023-02-10 07:22 | PM.PNPO.1 ---
Subjective Subjective Date Patient Seen: 02/10/23 Time Patient Seen: 07:22 Interval history: Hip pain is mild. No fever/ chills. Exam Vital Signs (past 8 hours): - 02/10/23 04:54 Respiratory Rate 18 Oxygen Delivery Method CPAP Oxygen Flow Rate 2 Narrative Exam Narrative: 77-year-old female resting comfortably in bed in no apparent distress. Dressing clean, dry and intact. Motor functions intact bilateral lower extremities. Const General: comfortable Nutritional Appearance: well nourished Orientation: alert Resp Effort & Inspection: normal respiratory effort and able to speak in complete sentences Objective Labs 02/10/23 04:20 02/10/23 04:20 Labs: Laboratory Results - last 24 hr 02/10/23 04:20 WBC 14.3 H RBC 3.83 L Hgb 12.6 Hct 37.1 MCV 96.7 MCH 32.8 MCHC 33.9 RDW 13.8 Plt Count 155 Neut % (Auto) 84.1 H Lymph % (Auto) 5.6 L [place] % (Auto) 10.2 Eos % (Auto) 0.0 L Baso % (Auto) 0.1 Neut # (Auto) 97346 H Lymph # (Auto) 800 L [place] # (Auto) 1500 H Eos # (Auto) 0 Baso # (Auto) 0 Sodium 132 L Potassium 4.4 Chloride 96 L Carbon Dioxide 26 BUN 45 H Creatinine 1.25 H Estimated GFR 44 L BUN/Creatinine Ratio 36.0 H Glucose 183 H D Calcium 9.5 PFSH Medical History Hyperlipidemia HTN (hypertension) Lower back pain Osteoarthritis of lumbar spine Lumbar strain Surgical History S/P skin biopsy Social History household members: none Smoking Status: Never smoker alcohol intake: current Assessment & Plan Post-op Postoperative Procedures: Procedures Operation Date: 02/08/23 09:00 Actual Procedure Side Surgeon p Intramedullary Nailing Femur Right Latoya Isaacs MD Postoperative status narrative: Postop day 2, stable status post intramedullary abel right hip for right subtrochanteric femur fracture Postoperative plan narrative: Mobilize with physical therapy, weight-bearing as tolerated right lower extremity, use a walker at all times Follow up ortho 10-14 days with new x-rays Disposition, 2 person assist with physical therapy. Physical therapy recommended retirement facility at this time. Quality VTE Deep Vein Thrombosis/Pulmonary Embolism Present on Admission: No
--- NOTE | 2023-02-10 07:57 | DI.CT.S_ITS ---
PROCEDURE: CT HEAD/BRAIN WO CON INDICATIONS: confusion TECHNIQUE: Noncontrast 4.5 mm thick angled axial sections acquired from the foramen magnum to the vertex, with coronal and sagittal reformats. For radiation dose reduction, the following was used: automated exposure control, adjustment of mA and/or kV according to patient size. COMPARISON: [facility], CT, CT HEAD/BRAIN WO CON, 02/07/2023, 19:49. FINDINGS: Image quality: Excellent. CSF spaces: Basal cisterns are patent. No extra-axial fluid collections. The ventricles are symmetric in size and shape. Brain: No intracranial bleeds or masses. There is cerebral volume loss for age, with resultant ventricular and sulcal prominence. There are periventricular and deep white matter chronic small vessel ischemic changes. There is intracranial internal carotid artery atherosclerosis. Skull and face: Calvarium and visualized facial bones appear intact, without suspicious lesions. Bilateral lens replacements. Otherwise, the orbits are unremarkable. Sinuses: Visualized sinuses and mastoids are clear. IMPRESSION: No acute intracranial abnormalities. Dictated by: Sundeep Gonzalez M.D. on 02/10/2023 at 8:33 Approved by: Sundeep Gonzalez M.D. on 02/10/2023 at 8:35
--- NOTE | 2023-02-10 07:58 | DI.RAD.S_ITS ---
PROCEDURE: XR CHEST 1V INDICATIONS: pneumonia? TECHNIQUE: One view of the chest was acquired. COMPARISON: [facility], CR, XR CHEST 1V, 02/08/2023, 11:05. FINDINGS: Surgical changes and devices: None. Lungs and pleura: Patient is rotated with low lung volumes which limits evaluation. Increased retrocardiac density, consolidation is not excluded. No pleural effusions or pneumothorax. Mediastinum: Mediastinal contours appear normal. Heart size is enlarged. Bones and chest wall: No suspicious bony lesions. Overlying soft tissues appear unremarkable. IMPRESSION: Patient is rotated with low lung volumes which limits evaluation. Possible retrocardiac opacity which may represent consolidation, atelectasis or effusion. Dictated by: Sundeep Gonzalez M.D. on 02/10/2023 at 8:31 Approved by: Sundeep Gonzalez M.D. on 02/10/2023 at 8:33
[2023-02-10 08:00] VITALS: O2SAT 92
[2023-02-10] MEDS: METOPROLOL ER 50 MG TABLET 100 MG PO (10:00)
[2023-02-10] MEDS: CHOLECALCIFEROL (VITAMIN D3) 1,000 UNIT TABLET 5000 UNIT PO (10:00)
[2023-02-10] MEDS: FUROSEMIDE 40 MG TABLET PO (10:01)
[2023-02-10] MEDS: APIXABAN 5 MG TABLET PO ×2 (10:01→20:20)
[2023-02-10] MEDS: polyethylene glycoL 3350 17 GM POWD.PACK PO (10:01)
[2023-02-10] MEDS: GLIMEPIRIDE 2 MG TABLET 4 MG PO ×2 (10:01→20:20)
[2023-02-10] MEDS: DOCUSATE 100 MG CAPSULE PO ×2 (10:01→20:20)
[2023-02-10] MEDS: ACETAMINOPHEN 325 MG TABLET 650 MG PO (10:02)
[2023-02-10] MEDS: OXYCODONE IR 5 MG TABLET PO (10:07)
--- NOTE | 2023-02-10 10:15 | PT.IPTN ---
Current Diagnoses Type 2 diabetes mellitus without complications (02/06/23) Polyneuropathy, unspecified (02/06/23) Essential (primary) hypertension (02/06/23) Disorder of kidney and ureter, unspecified (02/06/23) Unspecified fracture of right femur, initial encounter for closed fracture (02/06/23) Surgery Performed Operation Date: 02/08/23 09:00 Actual Procedures p Intramedullary Nailing Femur(Right) - Latoya Isaacs MD Physical Therapy Treatment Note M2 PT-IP Current Condition Start: 02/09/23 07:56 Freq: NEEDED Status: Active Protocol: Document 02/09/23 13:20 AMB (Rec: 02/09/23 14:01 AMB [id number]) Physical Therapy Current Condition Current Condition Evaluation Date 02/09/23 Treatment Diagnosis fall; R hip fx c intermedullary abel Onset Date 02/06/23 M3 PT-IP Subjective Start: 02/09/23 07:56 Freq: NEEDED Status: Active Protocol: Document 02/10/23 10:59 TS (Rec: 02/10/23 11:09 TS [id number]) Subjective Physical Therapy Visit Type Type Treatment Note Visit Start Time 10:15 Visit Stop Time 10:30 Total Visit Minutes 15 Number of HARBOR MASTER Visits 1 Physical Therapy Visit Comments Patient Comments Pt found attempting to sit EOB with grandson, would like to sit EOB, pt agreeable to PT. M4 PT-IP Mobility and Gait Start: 02/09/23 07:56 Freq: NEEDED Status: Active Protocol: Document 02/10/23 10:59 TS (Rec: 02/10/23 11:09 TS [id number]) PT-Bed Mobility Assessment Supine to Sit Supine to Sit Maximum Assistance,2 Person Assistance,Head of Bed Elevated,Bedrails Scooting Scooting to Edge of Bed Maximum Assistance PT-Transfer Assessment Sit to and From Stand Sit to and from Stand Maximum Assistance,2 Person Assistance,Use of Upper Extremities Equipment Transfer Assistive Device Gait Belt,Front Wheeled Walker Transfers Transfer Destination Chair,Bedside Commode Transfer Ability Level of Assist Maximum Assistance,2 Person Assistance,Use of Upper Extremities Comments Mobility Comments Supine to sit MaxA x2 for uprighting trunk with handheld assist. She scooted to EOB MaxA x2 with use of transfer pad. She sat EOB ~3 mins with BUE support and use of handrail. Sit to stand from bed MaxAx3, bed moved and commode places under pt. Sit to stand from commode to chair MaxA x3 with use of FWW, commode removed and chair placed under pt, ICT PROGRAMMER performed pericare. Pt was left in chair with family in room, all needs met. Gait Assessment Comments Gait Comments Unable at this time PT-Balance Assessment Sitting Balance and Reactions Static Sitting Balance Ability Fair Dynamic Sitting Balance Ability Fair Standing Balance and Reactions Static Standing Balance Ability Poor Dynamic Standing Balance Ability Poor M5 PT-IP Objective Assessments Start: 02/09/23 07:56 Freq: NEEDED Status: Active Protocol: Document 02/09/23 13:20 AMB (Rec: 02/09/23 14:01 AMB [id number]) Orientation Orientation/Cognition Level of Alertness Alert Gross Range of Motion Lower Extremity ROM Assessment Bilaterally Impaired Strength Lower Extremity Strength Assessment Bilaterally Impaired Comments Strength Comments Limited with peripheral neuropathy at the ankles. Knees are painful bilaterally but worse on the R. L hip limits strength, unable to move L hip against gravity. M6 PT-IP Treatment Start: 02/09/23 07:56 Freq: NEEDED Status: Active Protocol: Document 02/10/23 10:59 TS (Rec: 02/10/23 11:09 TS [id number]) Physical Therapy Treatment Education Education Provided Weight Bearing Status,Safety M7 PT-IP Assessment and Plan Start: 02/09/23 07:56 Freq: NEEDED Status: Active Protocol: Document 02/10/23 10:59 TS (Rec: 02/10/23 11:09 TS [id number]) PT Summary Assessment and Plan Potential Rehabilitation Potential Good Summary Impairments Pain,Strength,Balance,Bed Mobility,Transfers,Gait, Activity Tolerance Progress Towards Goals Slow Progress due to Pain,Slow Progress due to Medical Issues,Slow Progress due to Activity Tolerance,Slow Progress - Other Assessment Summary Sandra continues to make slow progress with her mobility this session. She is MaxA x2 for bed mobility and scooting to EOB. She performed sit to stand x3 MaxA x3 with use of FWW, pt has some buckling on L side with little tolerance to standing. Bed was moved for placement of commode behind her, was not safe for stand pivot. She remains anxious of mobility and has a fear of falling. PT continues to recommend SNF when medically ready. Goals Bed Mobility Goal Minimal Assistance Transfer Goal Moderate Assistance Gait Goal Moderate Assistance,Front Wheel Walker Gait Distance 20 Days to Meet Goals 5 Frequency of Treatment Frequency Of Treatment Once a Day Treatment Plan Physical Therapy Treatment Plan Bed Mobility Training,Transfer Training,Gait Training Weight Bearing Status Weight Bearing Status Weight Bear as Tolerated Recommendations To Nursing Amount of Assist Needed Mechanical Lift Discharge Recommendations PT Discharge Recommendations SNF Rehab Transportation Needs at Discharge Wheelchair/Cabulance
--- NOTE | 2023-02-10 10:30 | OT.IP.TRT ---
Current Diagnoses Type 2 diabetes mellitus without complications (02/06/23) Polyneuropathy, unspecified (02/06/23) Essential (primary) hypertension (02/06/23) Disorder of kidney and ureter, unspecified (02/06/23) Unspecified fracture of right femur, initial encounter for closed fracture (02/06/23) Surgery Performed Operation Date: 02/08/23 09:00 Actual Procedures p Intramedullary Nailing Femur(Right) - Latoya Isaacs MD Occupational Therapy Treatment Note M2 OT-IP Current Condition Start: 02/09/23 16:01 Freq: Status: Active Protocol: Document 02/09/23 16:02 [facility] (Rec: 02/09/23 16:22 [facility] [id number]) Occupational Therapy Current Condition Current Condition Evaluation Date 02/09/23 Treatment Diagnosis R hip fx s/p R IM nailing Diagnosis Onset Date 02/06/23 Weight Bearing Status Weight Bearing Status Weight Bear as Tolerated M3 OT- IP Subjective and Pain Start: 02/09/23 16:01 Freq: Status: Active Protocol: Document 02/10/23 10:30 [facility] (Rec: 02/10/23 11:09 [facility] [id number]) OT- Subjective Occupational Therapy Visit Type Type Treatment Note Visit Start Time 10:30 Visit Stop Time 10:58 Total Visit Minutes 28 Occupational Therapy Visit Comments Patient Comments Pt wanting to have a bowel movement. Patient/Caregiver Goals TO get better. OT Pain Assessment Pain When Pain Assessed During Mobility Pain Present Pain Present Pain Reported Location Right Hip Pain Behaviors Facial Grimacing,Wincing M4 OT- IP ADL's Start: 02/09/23 16:01 Freq: Status: Active Protocol: Document 02/10/23 10:30 [facility] (Rec: 02/10/23 11:09 [facility] [id number]) OT [id number] Comments OT Self-Feeding Comments Not at meal time. OT ADL-Grooming General Evaluation Grooming Ability Standby Assistance Areas Needing Assistance Retrieving/Set-up of Grooming Items Comments OT Grooming Comments Pt able wash her face after set-up of wash cloth. OT ADL-Oral Care General Eval Oral Care Ability Independent Areas of Assistance Retrieving/Set-Up of Items Comments Oral Care Comments After set-up. OT ADL-Dressing General Eval Lower Body Dressing Ability Maximum Assistance OT ADL-Toileting General Evaluation Toileting Ability Total Assistance Areas Needing Assistance Manage Clothing,Perform Perineal Hygiene Comments OT Toileting Comments MAX AX 3 to stand to FWW and able to switch from bed to BSC and then to recliner at this time. OT ADL-Bathing Comments OT Bathing Comments Sponge bath more appropriate at this time. 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 Comments unable to perform for self at this time Driving Driving Comments pt does not drive at baseline M6 OT- IP Functional Cognition Start: 02/09/23 16:01 Freq: Status: Active Protocol: Document 02/10/23 10:30 [facility] (Rec: 02/10/23 11:09 [facility] [id number]) Cognitive Factors Limiting Selfcare Function Cognitive Ability Level of Alertness Alert Attention Span Ability Capable of Focused Attention, Capable of Sustained Attention Ability to Follow Commands Able to Follow One Step Commands with Increased Time, Able to Follow One Step Commands with Repetition Cognitive Comments Cognitive Assessment Comments Pt able to follow commands for ADL and mobility needs with simple cues. M7 OT- IP Mobility and Balance Start: 02/09/23 16:01 Freq: Status: Active Protocol: Document 02/10/23 10:30 [facility] (Rec: 02/10/23 11:09 [facility] [id number]) OT- Bed Mobility Assessment Supine to Sit Supine to Sit Assist Maximum Assistance,2 Person Assistance OT-Transfer Assessment Sit to and From Stand Sit to and from Stand Maximum Assistance,1 Person Assistance,2 Person Assistance Technique Transfer Destination Bed,Bedside Commode Transfer Technique Stand Step Pivot Comments Mobility Comments Pt able to come to stand with MAX AX 3 assist to help block her feet and for her balance to the FWW. Pt tends to buckle as also has a bad left knee. After getting pt to stand with MAX AX 3 to FWW, able to switch from bed to BSC to recliner. OT- Balance Assessment Sitting Balance and Reactions Static Sitting Balance Ability Good Dynamic Sitting Balance Ability Fair Standing Balance and Reactions Static Standing Balance Ability Poor M8 OT- IP Objective Assessments Start: 02/09/23 16:01 Freq: Status: Active Protocol: Document 02/09/23 16:02 [facility] (Rec: 02/09/23 16:22 [facility] [id number]) OT Gross Range of Motion Upper Extremity Range of Motion Assessment Within Functional Limits OT Strength Upper Extremity Strength Assessment Bilaterally Impaired Comments Strength Comments 3+/5 OT- Coordination Assessment Upper Extremity Finger to Nose Test Within Functional Limits Finger Tapping Test Within Functional Limits OT-Muscle Tone Assessment Muscle Tone WNL Yes OT Sensation Assessment Comments Summary Comments PT states numbness to B feet and finger tips at her baseline Edema Edema Present Edema Comments noted to the RLE M9 OT- IP Assessment and Plan Start: 02/09/23 16:01 Freq: Status: Active Protocol: Document 02/10/23 10:30 [facility] (Rec: 02/10/23 11:09 [facility] [id number]) OT Summary Assessment and Plan Potential Rehabilitation Potential Good Analytic Complexity at Evaluation High Summary OT Impairments Pain,Strength,Balance, Sensation,Functional Mobility, Grooming,Dressing,Toileting, Bathing,Toilet Transfers, Shower Transfers,Activity Tolerance Progress Towards Goals Slow Progress due to Pain,Slow Progress due to Medical Issues,Slow Progress due to Activity Tolerance Assessment Summary Pt able to follow commands for oral care, toileting , and standing with FWW with MAX AX3 so able to switch out to the BS, and then recliner. Pt to go to skilled rehab when medically stable. Goals Grooming Goal Independent Dressing Goal Independent Toileting Goal Independent Bathing Goal Independent Toilet Transfer Goal Standby Assistance Shower Transfer Goal Standby Assistance Days to Meet Goals 29 Frequency of Treatment Frequency Of Treatment Once a Day Treatment Plan OT Treatment Plan ADL Training,Functional Mobility,Patient/Family Education Other Treatment Recommendations and Next ADLs seated in chair, [facility] Treatment Focus transfer Discharge Recommendations OT Discharge Recommendations SNF Rehab Transportation Needs at Discharge Wheelchair/Cabulance
--- NOTE | 2023-02-10 10:31 | CM.DPC ---
DCP SNF Cont: Per MD, pt unfortunately started to develop hospital delirium last night and now not medically stable to d/c to SNF yet today, hopefully tomorrow Wed 02/11. ELIZABETH spoke to Brandi at [facility] and she cancelled transport and faxed updated notes and she will follow for possible discharge to their facility tomorrow if pt stable. Plan: SW to follow for plan of d/c to [facility] via facility van when medically stable. SW to keep Dtr/DPOA updated. JANY Lawson
[2023-02-10 12:00] VITALS: BP 93/62; PULSE 85; RESP 16; TEMP 36.1; O2SAT 90
[2023-02-10 15:00] VITALS: O2SAT 94
--- NOTE | 2023-02-10 15:58 | P.PN_ITS ---
Subjective Subjective Date Patient Seen: 02/10/23 Time Patient Seen: 08:00 Interval history: Overnight she became paranoid, anxious, confused. This morning she is mildly improved but remains confused and not at baseline. She has no other complaints. Exam Vital Signs (past 8 hours): - 02/10/23 08:00 02/10/23 12:00 02/10/23 15:00 Temperature 97.0 F L Pulse Rate 85 Respiratory Rate 16 Blood Pressure 93/62 Pulse Oximetry 92 90 L 94 Oxygen Delivery Method Room Air Room Air Oxygen Flow Rate 0 0 0 Fraction of Inspired Oxygen 28 Oxygen Delivery Method Room Air Oxygen Flow Rate 0 Narrative Exam Narrative: GEN: no acute distress EXT: hip tender to palpation, dressing clean, dry intact NEURO: awake, alert, oriented Objective Labs 02/10/23 04:20 02/10/23 04:20 Labs: Laboratory Results - last 24 hr 02/10/23 04:20 WBC 14.3 H RBC 3.83 L Hgb 12.6 Hct 37.1 MCV 96.7 MCH 32.8 MCHC 33.9 RDW 13.8 Plt Count 155 Neut % (Auto) 84.1 H Lymph % (Auto) 5.6 L [place] % (Auto) 10.2 Eos % (Auto) 0.0 L Baso % (Auto) 0.1 Neut # (Auto) 12902 H Lymph # (Auto) 800 L [place] # (Auto) 1500 H Eos # (Auto) 0 Baso # (Auto) 0 Sodium 132 L Potassium 4.4 Chloride 96 L Carbon Dioxide 26 BUN 45 H Creatinine 1.25 H Estimated GFR 44 L BUN/Creatinine Ratio 36.0 H Glucose 183 H D Calcium 9.5 PFSH Medical History Hyperlipidemia HTN (hypertension) Lower back pain Osteoarthritis of lumbar spine Lumbar strain Surgical History S/P skin biopsy Social History household members: none Smoking Status: Never smoker alcohol intake: current Assessment & Plan Assessment & Plan narrative: # right hip fracture -from ground level fall while trying on Halloween costume -hip x-ray with fracture of right proximal femur -ortho consulted, OR repair on 02/08 -pain control, careful with opiates as they cause confusion # Acute encephalopathy -CT head with no acute findings -she became confused PM of 02/09, likely secondary to hospital acquired delirium -stop levofloxacin and ordered augmentin for infection -continue to attempt good pain control -encourage out of bed -laxatives for goal of regular bowel movement # Hypoxemia -secondary to atelectasis vs less likely pneumonia -on antibiotics as above -encourage out of bed, working with therapy # UTI -UA with pyuria, culture >100k E. coli -plan for antibiotics with augmentin # atrial fibrillation -restart eliquis -continue metoprolol # hypertension -no longer on lisinopril/HCTZ -continue metoprolol -hold spironolactone # hyperlipidemia -continue home statin # type 2 diabetes -hold home metformin -low-dose sliding scale insulin # anxiety -ativan PRN Quality VTE Deep Vein Thrombosis/Pulmonary Embolism Present on Admission: No
--- NOTE | 2023-02-10 18:24 | PC.NURSE ---
Pt has had a difficult day today. Pt has been very anxious and using her Grandson Sammy's verbage-suspicious and paranoid. Grandson has stayed at the bedside of the Pt today to attempt to calm her help to ease her anxiety. Met with Pt, Grandson, and Dr. Sheppard to discuss goals of care with both and Pt appeared calm at that time. Pt has refused respositioning and interventions multiple times today including pain meds, and position changes and at times agreed and then refused interventions that she agreed to. Pain meds were again discussed, offered, and agreed to by Pt and then refused when provided. Pt's asked us to just leave her alone and Pt's grandson also agreed with that request. Pt is currently sleeping and gently snoring with even and unlabored breathing. FLACC is currently zero. Pt's Grandson is seated at the bedside in the chair and denies needs at this time. Bed alarm on for safety.
[2023-02-10] MEDS: AMOXICILLIN/CLAV 875/125 MG 1 TAB PO (20:20)
[2023-02-10] MEDS: QUETIAPINE 25 MG TABLET PO (20:21)
[2023-02-10] MEDS: ATORVASTATIN 20 MG TABLET 10 MG PO (20:21)
[2023-02-10] MEDS: SENNOSIDES 8.6 MG TABLET 17.2 MG PO (20:21)
[2023-02-10 21:37] VITALS: BP 114/60; PULSE 87; RESP 17; TEMP 36.4; O2SAT 93
[2023-02-11] VITALS (8 sets, daily range): BP systolic 99–125; BP diastolic 44–69; PULSE 70–96; RESP 16–18; TEMP 36.2–36.7; O2SAT 93–97
[2023-02-11] MEDS: OXYCODONE IR 10 MG TABLET PO ×3 (02:00→13:21)
--- NOTE | 2023-02-11 02:08 | PC.NURSE ---
This BLOW PIT HELPER with [facility] [employer] checked on patient and found patients granddaughter at bedside crying. When asked what was wrong patient became angry and stated Dont play games with me you know whats wrong. This BLOW PIT HELPER introduce self to the patient and said that this is the first time that we have met. Asked the patient what we could do to help make her more comfortable. Patient wanting to get out of bed to going to the restroom, patient was informed that she has a purewick in placed and that she could pee whenever she wanted. Patient became angry and stated No I have to poop. KRIS Sandoval was called into the room to assist with the patient. Patient was offered the bedpan and patient agreed. Patient rolled on to bedpan. Both this BLOW PIT HELPER and [facility] where at bedside the whole time. Patient was unable to go, so KRIS Toney was called in to the assist with getting the patient off bedpan and repositioned. Patient was pulled up in bed and purewick was replaced. Reported to KRIS
[2023-02-11 06:36] LABS: Add Manual Diff / Slide Review NO; Basophils Absolute Auto 0 /uL (0-100); Basophils Percent Auto 0.1 % (0-2); Eosinophils Absolute Auto 0 /uL (0-450); Eosinophils Percent Auto 0.3 % (2-4); Hematocrit 34.7 % (36-46); Hemoglobin 12.1 g/dL (12.0-16.0); Lymphocytes Absolute Auto 900 /uL (1100-4500); Lymphocytes Percent Auto 8.9 % (25-40); Mean Corpuscular HGB Conc 34.7 % (30-36); Mean Corpuscular Hemoglobin 33.3 PG (26-34); Mean Corpuscular Volume 95.9 fL (80-100); Monocytes Absolute Auto 1200 /uL (0-900); Monocytes Percent Auto 10.8 % (3-14); Neutrophils Absolute Auto 8500 /uL (1500-7000); Neutrophils Percent Auto 79.9 % (50-75); Platelet Count 162 X10^3/uL (150-400); Red Blood Cell Count 3.62 X10^6/uL (4.0-5.2); Red Cell Distribution Width 13.7 % (11.6-14.8); White Blood Cell Count 10.6 X10^3/uL (4.5-11.0)
[2023-02-11 06:55] LABS: BUN Creatinine Ratio 42.2 (6-22); Blood Urea Nitrogen 49 mg/dL (7-17); Calcium 9.2 mg/dL (8.4-10.2); Carbon Dioxide 27 mmol/L (22-32); Chloride 98 mmol/L (98-107); Estimated Glomerular Filt Rate 49 mL/min (>60); Glucose 133 mg/dL (80-110); HEMOLYSIS < 15 (0-50); Sodium 134 mmol/L (137-145)
[2023-02-11] MEDS: polyethylene glycoL 3350 17 GM POWD.PACK PO (09:30)
[2023-02-11] MEDS: APIXABAN 5 MG TABLET PO ×2 (09:30→20:41)
[2023-02-11] MEDS: AMOXICILLIN/CLAV 875/125 MG 1 TAB PO ×2 (09:30→20:41)
[2023-02-11] MEDS: DOCUSATE 100 MG CAPSULE PO (09:30)
[2023-02-11] MEDS: FUROSEMIDE 40 MG TABLET PO (09:31)
[2023-02-11] MEDS: CHOLECALCIFEROL (VITAMIN D3) 1,000 UNIT TABLET 5000 UNIT PO (09:31)
[2023-02-11] MEDS: METOPROLOL ER 50 MG TABLET 100 MG PO (09:31)
[2023-02-11] MEDS: ACETAMINOPHEN 325 MG TABLET 650 MG PO ×2 (09:32→17:25)
[2023-02-11] MEDS: SODIUM CHLORIDE 0.9% FLUSH 10 ML IV ×2 (09:33→21:46)
[2023-02-11] MEDS: GLIMEPIRIDE 2 MG TABLET 4 MG PO ×2 (09:33→20:42)
--- NOTE | 2023-02-11 11:40 | OT.IP.TRT ---
Current Diagnoses Type 2 diabetes mellitus without complications (02/06/23) Polyneuropathy, unspecified (02/06/23) Essential (primary) hypertension (02/06/23) Disorder of kidney and ureter, unspecified (02/06/23) Unspecified fracture of right femur, initial encounter for closed fracture (02/06/23) Surgery Performed Operation Date: 02/08/23 09:00 Actual Procedures p Intramedullary Nailing Femur(Right) - Latoya Isaacs MD Occupational Therapy Treatment Note M2 OT-IP Current Condition Start: 02/09/23 16:01 Freq: Status: Active Protocol: Document 02/09/23 16:02 [facility] (Rec: 02/09/23 16:22 [facility] [id number]) Occupational Therapy Current Condition Current Condition Evaluation Date 02/09/23 Treatment Diagnosis R hip fx s/p R IM nailing Diagnosis Onset Date 02/06/23 Weight Bearing Status Weight Bearing Status Weight Bear as Tolerated M3 OT- IP Subjective and Pain Start: 02/09/23 16:01 Freq: Status: Active Protocol: Document 02/11/23 11:23 [facility] (Rec: 02/11/23 12:47 [facility] [id number]) OT- Subjective Occupational Therapy Visit Type Type Treatment Note Visit Start Time 11:23 Visit Stop Time 11:40 Total Visit Minutes 17 Occupational Therapy Visit Comments Patient Comments Pt wanting to try to have a bowel movement. Patient/Caregiver Goals TO get better. OT Pain Assessment Pain When Pain Assessed During Mobility Pain Present Pain Present Pain Reported M4 OT- IP ADL's Start: 02/09/23 16:01 Freq: Status: Active Protocol: Document 02/11/23 11:23 [facility] (Rec: 02/11/23 12:47 [facility] [id number]) OT [id number] Comments OT Self-Feeding Comments Not at meal time. OT ADL-Grooming General Evaluation Grooming Ability Standby Assistance Areas Needing Assistance Retrieving/Set-up of Grooming Items Comments OT Grooming Comments Pt able wash her face after set-up of wash cloth. OT ADL-Oral Care Comments Oral Care Comments Pt states did prior. OT ADL-Dressing General Eval Lower Body Dressing Ability Total Assistance Areas Needing Assistance Underpants/Brief OT ADL-Toileting General Evaluation Toileting Ability Total Assistance Areas Needing Assistance Manage Clothing,Perform Perineal Hygiene Comments OT Toileting Comments Total assist for hygiene and able to assist pt while sitting in the BSC. 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 Comments unable to perform for self at this time Driving Driving Comments pt does not drive at baseline M6 OT- IP Functional Cognition Start: 02/09/23 16:01 Freq: Status: Active Protocol: Document 02/11/23 11:23 [facility] (Rec: 02/11/23 12:47 [facility] [id number]) Cognitive Factors Limiting Selfcare Function Cognitive Ability Level of Alertness Alert Attention Span Ability Capable of Focused Attention, Capable of Sustained Attention Ability to Follow Commands Able to Follow One Step Commands with Increased Time, Able to Follow One Step Commands with Repetition Cognitive Comments Cognitive Assessment Comments Pt needing concrete cues to follow. M7 OT- IP Mobility and Balance Start: 02/09/23 16:01 Freq: Status: Active Protocol: Document 02/11/23 11:23 [facility] (Rec: 02/11/23 12:47 [facility] [id number]) OT-Transfer Assessment Sit to and From Stand Sit to and from Stand Moderate Assistance,Maximum Assistance,2 Person Assistance Comments Mobility Comments Pt able to assist more to be able to get her trunk upright today. Pt MOD/MAXA X to stand to FWW. Pt not able to weight shift or move her feet at this time. Therefore pt able to stand with grandson/FORM SETTER [employer] while OT able to swap out the bed to BSC and back to bed. OT- Balance Assessment Sitting Balance and Reactions Static Sitting Balance Ability Good Dynamic Sitting Balance Ability Fair Standing Balance and Reactions Static Standing Balance Ability Poor M8 OT- IP Objective Assessments Start: 02/09/23 16:01 Freq: Status: Active Protocol: Document 02/09/23 16:02 [facility] (Rec: 02/09/23 16:22 [facility] [id number]) OT Gross Range of Motion Upper Extremity Range of Motion Assessment Within Functional Limits OT Strength Upper Extremity Strength Assessment Bilaterally Impaired Comments Strength Comments 3+/5 OT- Coordination Assessment Upper Extremity Finger to Nose Test Within Functional Limits Finger Tapping Test Within Functional Limits OT-Muscle Tone Assessment Muscle Tone WNL Yes OT Sensation Assessment Comments Summary Comments PT states numbness to B feet and finger tips at her baseline Edema Edema Present Edema Comments noted to the RLE M9 OT- IP Assessment and Plan Start: 02/09/23 16:01 Freq: Status: Active Protocol: Document 02/11/23 11:23 [facility] (Rec: 02/11/23 12:47 [facility] [id number]) OT Summary Assessment and Plan Potential Rehabilitation Potential Good Analytic Complexity at Evaluation High Summary OT Impairments Pain,Strength,Balance, Sensation,Functional Mobility, Grooming,Dressing,Toileting, Bathing,Toilet Transfers, Shower Transfers,Activity Tolerance Progress Towards Goals Progressing Toward Goals,Slow Progress due to Pain,Slow Progress due to Medical Issues ,Slow Progress due to Activity Tolerance Assessment Summary Pt able to assist to wash her face and arm today after set- up of wash cloth. Pt still needing MOD/MAXA x2 to stand to FWW and not able to transfer today as pt has difficulty with weight shifting and pain. Pt will greatly benefit from skilled rehab when medically stable. Goals Grooming Goal Independent Dressing Goal Independent Toileting Goal Independent Bathing Goal Independent Toilet Transfer Goal Standby Assistance Shower Transfer Goal Standby Assistance Days to Meet Goals 28 Frequency of Treatment Frequency Of Treatment Once a Day Treatment Plan OT Treatment Plan ADL Training,Functional Mobility,Patient/Family Education Discharge Recommendations OT Discharge Recommendations SNF Rehab Transportation Needs at Discharge Wheelchair/Cabulance,Stretcher /Ambulance
--- NOTE | 2023-02-11 11:40 | PT.IPTN ---
Current Diagnoses Type 2 diabetes mellitus without complications (02/06/23) Polyneuropathy, unspecified (02/06/23) Essential (primary) hypertension (02/06/23) Disorder of kidney and ureter, unspecified (02/06/23) Unspecified fracture of right femur, initial encounter for closed fracture (02/06/23) Surgery Performed Operation Date: 02/08/23 09:00 Actual Procedures p Intramedullary Nailing Femur(Right) - Latoya Isaacs MD Physical Therapy Treatment Note M2 PT-IP Current Condition Start: 02/09/23 07:56 Freq: NEEDED Status: Active Protocol: Document 02/09/23 13:20 AMB (Rec: 02/09/23 14:01 AMB [id number]) Physical Therapy Current Condition Current Condition Evaluation Date 02/09/23 Treatment Diagnosis fall; R hip fx c intermedullary abel Onset Date 02/06/23 M3 PT-IP Subjective Start: 02/09/23 07:56 Freq: NEEDED Status: Active Protocol: Document 02/11/23 12:29 TS (Rec: 02/11/23 12:47 TS [id number]) Subjective Physical Therapy Visit Type Type Treatment Note Visit Start Time 11:40 Visit Stop Time 12:04 Total Visit Minutes 24 Notes Split treatment with OT. Number of UPHOLSTERY REPAIRER Visits 2 Physical Therapy Visit Comments Patient Comments Pt found resting in bed, grandson in room, pt reports wanting to use commode, agreeable to PT. Therapy Pain Assessment Pain When Pain Assessed During Mobility Pain Present Pain Present Pain Reported M4 PT-IP Mobility and Gait Start: 02/09/23 07:56 Freq: NEEDED Status: Active Protocol: Document 02/11/23 12:29 TS (Rec: 02/11/23 12:47 TS [id number]) PT-Bed Mobility Assessment Rolling Type of Rolling Log Rolling,Bilateral Level of Assist Maximal Assistance,2 Person Assistance Supine to Sit Supine to Sit Maximum Assistance,2 Person Assistance,Head of Bed Elevated,Bedrails Sit to Supine Sit to Supine Maximum Assistance,2 Person Assistance,Head of Bed Elevated,Bedrails Scooting Scooting to Edge of Bed Moderate Assistance Scooting Up and Down in Bed Dependent PT-Transfer Assessment Sit to and From Stand Sit to and from Stand Moderate Assistance,2 Person Assistance,Use of Upper Extremities Equipment Transfer Assistive Device Gait Belt,Front Wheeled Walker Transfers Transfer Destination Chair,Bedside Commode Transfer Ability Level of Assist Moderate Assistance,2 Person Assistance,Use of Upper Extremities Comments Mobility Comments Supine to sit MaxA x2 with HOB elevated, handheld assist for uprighting trunk and LEs to EOB. She slowly scooted to EOB ModA, pt cued for BUE support to push forward. Sit to stand x3 ModA x2 with FWW, pt has some retroleaning and decreased wbering on R side. She attempted stand pivot to commode but could not pickle sorter/ shuffle feet to commode, required removal of bed and commode placed underneath her. Pt sat on toilet ~10 mins, OT assisted with pericare. Pt has difficulty making decision to sit in chair or backto bed , appears somewhat confused. Sit to stand back to bed ModA x2 with FWW, bed placed underneath pt. Sit to supine into bed MaxA x2 for repositioning trunk and LEs. Pt rolled bilaterally in bed MaxA x2 for correction of transfer pad. Pt was left in bed, nursing staff tending to needs. Gait Assessment Comments Gait Comments Unable at this time PT-Balance Assessment Sitting Balance and Reactions Static Sitting Balance Ability Fair Dynamic Sitting Balance Ability Fair Standing Balance and Reactions Static Standing Balance Ability Poor Dynamic Standing Balance Ability Poor M5 PT-IP Objective Assessments Start: 02/09/23 07:56 Freq: NEEDED Status: Active Protocol: Document 02/09/23 13:20 AMB (Rec: 02/09/23 14:01 AMB [id number]) Orientation Orientation/Cognition Level of Alertness Alert Gross Range of Motion Lower Extremity ROM Assessment Bilaterally Impaired Strength Lower Extremity Strength Assessment Bilaterally Impaired Comments Strength Comments Limited with peripheral neuropathy at the ankles. Knees are painful bilaterally but worse on the R. L hip limits strength, unable to move L hip against gravity. M6 PT-IP Treatment Start: 02/09/23 07:56 Freq: NEEDED Status: Active Protocol: Document 02/11/23 12:29 TS (Rec: 02/11/23 12:47 TS [id number]) Physical Therapy Treatment Education Education Provided Weight Bearing Status,Safety M7 PT-IP Assessment and Plan Start: 02/09/23 07:56 Freq: NEEDED Status: Active Protocol: Document 02/11/23 12:29 TS (Rec: 02/11/23 12:47 TS [id number]) PT Summary Assessment and Plan Potential Rehabilitation Potential Good Summary Impairments Pain,Strength,Balance,Bed Mobility,Transfers,Gait, Activity Tolerance Progress Towards Goals Slow Progress due to Pain,Slow Progress due to Medical Issues,Slow Progress due to Activity Tolerance,Slow Progress - Other Assessment Summary Sandra continues to make slow progress with her mobility this session. She is MaxA x2 for bed mobility and requires max cues for sequencing. She progressed her sit to stand to x4 with ModA x2. Attmepted to perform stand pivot to commode but is unsafe to do so at this time. Appears to have some confusion and difficulty making decisions, is somewhat improved from yesterday. PT continues to recommend SNF to progress functional mobility and activity tolerance. Goals Bed Mobility Goal Minimal Assistance Transfer Goal Moderate Assistance Gait Goal Moderate Assistance,Front Wheel Walker Gait Distance 20 Days to Meet Goals 5 Frequency of Treatment Frequency Of Treatment Once a Day Treatment Plan Physical Therapy Treatment Plan Bed Mobility Training,Transfer Training,Gait Training Weight Bearing Status Weight Bearing Status Weight Bear as Tolerated Recommendations To Nursing Amount of Assist Needed Mechanical Lift Discharge Recommendations PT Discharge Recommendations SNF Rehab Transportation Needs at Discharge Wheelchair/Cabulance,Stretcher /Ambulance
--- NOTE | 2023-02-11 13:48 | CM.DPNOTE ---
DCP Note Patient with difficult night last evening, elements of confusion and paranoia. Patient feeling better today and has asked Dr Sheppard if she can discharge to [facility] today. Placed call to Brandi at [facility], discussed patient. [facility] can take once patient is closer to cognitive baseline. Discharge tomorrow is anticipated. Met w/patient and her grandson Sammy. Reviewed plan. Patient expresses some fear about staying in the hospital another night because she had a difficult night last night. This ASSISTANT BOYS TRACK COACH and Sammy attempted to reassure patient and discussed the goal of discharge to [facility] tomorrow. Staffed this case with nurse coordinator Sunshine and RN Jony. Tonight, active efforts to reduce patient's stress will include family at bedside, medication management, reduction of staff members in and out of patient's room and calm quiet voices in patient's room this evening. Plan: Anticipate patient can discharge tomorrow to [facility] via wheelchair van, pending further resolution of hospital acquired delirium. DONIS
--- NOTE | 2023-02-11 15:37 | P.PN_ITS ---
Subjective Subjective Date Patient Seen: 02/11/23 Time Patient Seen: 08:00 Interval history: She is improved today. She is not confused and understands why she is in the hospital. She has a cough that is productive of green phlegm. Exam Vital Signs (past 8 hours): - 02/11/23 08:00 02/11/23 08:47 02/11/23 09:31 Temperature 97.9 F Pulse Rate 96 H 96 H Respiratory Rate 17 Blood Pressure 112/67 112/67 Pulse Oximetry 94 94 Oxygen Delivery Method Nasal Cannula Oxygen Flow Rate 0 0 02/11/23 12:24 02/11/23 14:59 Temperature 97.2 F L Pulse Rate 79 Respiratory Rate 16 Blood Pressure 125/69 Pulse Oximetry 93 94 Oxygen Delivery Method Room Air Oxygen Flow Rate 0 0 Fraction of Inspired Oxygen 28 Oxygen Delivery Method Room Air Oxygen Flow Rate 0 Narrative Exam Narrative: GEN: no acute distress EXT: hip tender to palpation, dressing clean, dry intact NEURO: awake, alert, oriented Objective Labs 02/11/23 06:25 02/11/23 06:25 Labs: Laboratory Results - last 24 hr 02/11/23 06:25 WBC 10.6 RBC 3.62 L Hgb 12.1 Hct 34.7 L MCV 95.9 MCH 33.3 MCHC 34.7 RDW 13.7 Plt Count 162 Neut % (Auto) 79.9 H Lymph % (Auto) 8.9 L [place] % (Auto) 10.8 Eos % (Auto) 0.3 L Baso % (Auto) 0.1 Neut # (Auto) 8500 H Lymph # (Auto) 900 L [place] # (Auto) 1200 H Eos # (Auto) 0 Baso # (Auto) 0 Sodium 134 L Potassium 4.0 Chloride 98 Carbon Dioxide 27 BUN 49 H Creatinine 1.16 H Estimated GFR 49 L BUN/Creatinine Ratio 42.2 H Glucose 133 H Calcium 9.2 PFSH Medical History Hyperlipidemia HTN (hypertension) Lower back pain Osteoarthritis of lumbar spine Lumbar strain Surgical History S/P skin biopsy Social History household members: none Smoking Status: Never smoker alcohol intake: current Assessment & Plan Assessment & Plan narrative: # right hip fracture -from ground level fall while trying on costume -hip x-ray with fracture of right proximal femur -ortho consulted, OR repair on 02/08 -pain control, careful with opiates as they cause confusion # Acute encephalopathy, resolved -CT head with no acute findings -she became confused PM of 02/09, likely secondary to hospital acquired delirium -stop levofloxacin and ordered augmentin for infection, first day antibiotics 02/09 once confused, can consider 3-5 day course -continue to attempt good pain control -encourage out of bed -laxatives for goal of regular bowel movement # Hypoxemia, resolved -secondary to atelectasis vs less likely pneumonia -on antibiotics as above -encourage out of bed, working with therapy # UTI -UA with pyuria, culture >100k E. coli -plan for antibiotics with augmentin as above # atrial fibrillation -restart eliquis -continue metoprolol # hypertension -no longer on lisinopril/HCTZ -continue metoprolol -hold spironolactone # hyperlipidemia -continue home statin # type 2 diabetes -hold home metformin -low-dose sliding scale insulin # anxiety -ativan PRN Dispo: Patient is cognitively improved. She is near baseline mentation. She is medically stable for discharge today. Quality VTE Deep Vein Thrombosis/Pulmonary Embolism Present on Admission: No
[2023-02-11] MEDS: OXYCODONE IR 5 MG TABLET PO ×2 (17:25→20:41)
--- NOTE | 2023-02-11 17:39 | P.PN_ITS ---
Subjective Subjective Interval history: Patient is feeling well. Her pain is controlled with oral medications, but is having a difficult time getting the proper dosage and timing. She has been working with PT to use her walker. Denies any fever or chills. No discharge from the wound. Exam Vital Signs (past 8 hours): - 02/11/23 12:24 02/11/23 14:59 02/11/23 17:30 Temperature 97.2 F L 98.0 F Pulse Rate 79 73 Respiratory Rate 16 18 Blood Pressure 125/69 99/52 L Pulse Oximetry 93 94 93 Oxygen Delivery Method Room Air Oxygen Flow Rate 0 0 0 Fraction of Inspired Oxygen 28 Oxygen Delivery Method Room Air Oxygen Flow Rate 0 Narrative Exam Narrative: 77-year-old female resting comfortably in bed in no apparent distress. Her grandson is present in the room. Dressing clean, dry and intact. Motor functions intact bilateral lower extremities. Gross sensation to light touch is intact of the lower extremities. Const General: cooperative and comfortable Nutritional Appearance: well nourished Orientation: alert and oriented x3 Resp Effort & Inspection: normal respiratory effort and able to speak in complete sentences Objective Labs 02/11/23 06:25 02/11/23 06:25 Labs: Laboratory Results - last 24 hr 02/11/23 06:25 WBC 10.6 RBC 3.62 L Hgb 12.1 Hct 34.7 L MCV 95.9 MCH 33.3 MCHC 34.7 RDW 13.7 Plt Count 162 Neut % (Auto) 79.9 H Lymph % (Auto) 8.9 L [place] % (Auto) 10.8 Eos % (Auto) 0.3 L Baso % (Auto) 0.1 Neut # (Auto) 8500 H Lymph # (Auto) 900 L [place] # (Auto) 1200 H Eos # (Auto) 0 Baso # (Auto) 0 Sodium 134 L Potassium 4.0 Chloride 98 Carbon Dioxide 27 BUN 49 H Creatinine 1.16 H Estimated GFR 49 L BUN/Creatinine Ratio 42.2 H Glucose 133 H Calcium 9.2 PFSH Medical History Hyperlipidemia HTN (hypertension) Lower back pain Osteoarthritis of lumbar spine Lumbar strain Surgical History S/P skin biopsy Social History household members: none Smoking Status: Never smoker alcohol intake: current Assessment & Plan Post-op Postoperative Procedures: Procedures Operation Date: 02/08/23 09:00 Actual Procedure Side Surgeon p Intramedullary Nailing Femur Right Latoya Lucille Isaacs MD Postoperative day: 3 Postoperative plan narrative: Mobilize with physical therapy, weight-bearing as tolerated right lower extremity, use a walker at all times Follow up ortho 10-14 days with new x-rays. Disposition, 2 person assist with physical therapy. Physical therapy recommended group home facility at this time. Anticipate patient will be discharged tomorrow to [facility] via wheelchair van, pending further resolution of hospital acquired delirium. Quality VTE Deep Vein Thrombosis/Pulmonary Embolism Present on Admission: No
[2023-02-11] MEDS: ATORVASTATIN 20 MG TABLET 10 MG PO (20:41)
[2023-02-11] MEDS: QUETIAPINE 25 MG TABLET PO (20:41)
[2023-02-12] MEDS: OXYCODONE IR 5 MG TABLET PO (02:48)
--- NOTE | 2023-02-12 05:14 | PC.NURSE ---
Pt calm and cooperative with care, excluding brief/linen changes, during which she became tearful, and agitated, telling staff you must have no conscience, to be torturing people all day! Staff uses calm quiet voices and gentle movements with prior explanation, which improves pt's toleration of care.
[2023-02-12 09:32] VITALS: O2SAT 97
[2023-02-12] MEDS: AMOXICILLIN/CLAV 875/125 MG 1 TAB PO (09:48)
[2023-02-12 09:50] VITALS: BP 113/44; PULSE 70
[2023-02-12] MEDS: DOCUSATE 100 MG CAPSULE PO (09:50)
[2023-02-12] MEDS: APIXABAN 5 MG TABLET PO (09:50)
[2023-02-12] MEDS: GLIMEPIRIDE 2 MG TABLET 4 MG PO (09:50)
[2023-02-12] MEDS: ACETAMINOPHEN 325 MG TABLET 650 MG PO (09:50)
[2023-02-12] MEDS: METOPROLOL ER 50 MG TABLET 100 MG PO (09:50)
[2023-02-12] MEDS: OXYCODONE IR 10 MG TABLET PO (09:51)
[2023-02-12] MEDS: SODIUM CHLORIDE 0.9% FLUSH 10 ML IV (09:53)
[2023-02-12 10:02] LABS: Add Manual Diff / Slide Review NO; Basophils Absolute Auto 0 /uL (0-100); Basophils Percent Auto 0.3 % (0-2); Eosinophils Absolute Auto 100 /uL (0-450); Hematocrit 36.8 % (36-46); Hemoglobin 12.6 g/dL (12.0-16.0); Lymphocytes Absolute Auto 900 /uL (1100-4500); Lymphocytes Percent Auto 10.3 % (25-40); Mean Corpuscular HGB Conc 34.1 % (30-36); Mean Corpuscular Hemoglobin 33.1 PG (26-34); Mean Corpuscular Volume 97.1 fL (80-100); Monocytes Absolute Auto 800 /uL (0-900); Neutrophils Absolute Auto 6600 /uL (1500-7000); Neutrophils Percent Auto 78.4 % (50-75); Platelet Count 188 X10^3/uL (150-400); Red Blood Cell Count 3.79 X10^6/uL (4.0-5.2); Red Cell Distribution Width 13.7 % (11.6-14.8); White Blood Cell Count 8.4 X10^3/uL (4.5-11.0)
[2023-02-12 10:16] LABS: BUN Creatinine Ratio 41.6 (6-22); Blood Urea Nitrogen 42 mg/dL (7-17); Calcium 9.1 mg/dL (8.4-10.2); Carbon Dioxide 32 mmol/L (22-32); Chloride 100 mmol/L (98-107); Estimated Glomerular Filt Rate 57 mL/min (>60); Glucose 158 mg/dL (80-110); HEMOLYSIS < 15 (0-50); Potassium 4.4 mmol/L (3.4-5.1); Sodium 136 mmol/L (137-145)
--- NOTE | 2023-02-12 10:51 | P.DS_ITS ---
History of Present Illness History of Present Illness Chief complaint: Fall, Right hip pain Narrative: Sandra Espinoza is a 77yo F with PMH of atrial fibrillation on Eliquis, HTN, HLD, and DM2 who presents with GLF at home resulting in R hip fracture. Patient was attempting to put on a Halloween costume over head and lost her balance, falling back and landing directly on her right hip. She felt an immediate pain. The fall occurred on carpet. She denies history of osteoporosis and said her last DEXA 2 years ago was good. She denies striking her head, CP, SOB, NV, abd pain or diarrhea. Discharge Providers Provider Date of admission: 02/06/23 17:12 Discharge Date: 02/12/23 Primary care physician: An Johnson PA-C Consults: 02/06/23 18:01 Consult to Orthopedic Surgery Routine Comment: Consulting Provider: Latoya Isaacs Reason for consultation: R hip fracture 02/08/23 19:35 Consult to Discharge Planning Routine Comment: Consult to Physical Therapy Evaluate & Treat Comment: Physician Instructions: Evaluate and Treat 02/09/23 10:24 Consult to Occupational Therapy Evaluate & Treat Comment: Physician Instructions: Evaluate and treat Discharge provider: Deric Springer DO Summary Hospital Course Discharge Diagnosis: # right hip fracture -from ground level fall while trying on Halloween costume -hip x-ray with fracture of right proximal femur -ortho consulted, OR repair on 02/08 -pain control, careful with opiates as they cause confusion # Acute encephalopathy, resolved. -CT head with no acute findings -she became confused PM of 02/09, likely secondary to mild dementia with acute psychosis. Treated with scheduled seroquel 25mg nightly. -stop levofloxacin and ordered augmentin for infection, first day antibiotics 02/09 , will treat for 5 day course -continue to attempt good pain control -encourage out of bed -laxatives for goal of regular bowel movement # Hypoxemia, resolved -secondary to atelectasis vs less likely pneumonia -on antibiotics as above -encourage out of bed, working with therapy # UTI -UA with pyuria, culture >100k E. coli -plan for antibiotics with augmentin as above # atrial fibrillation -restart eliquis -continue metoprolol # hypertension -no longer on lisinopril/HCTZ -continue metoprolol -hold spironolactone # hyperlipidemia -continue home statin # type 2 diabetes -hold home metformin -low-dose sliding scale insulin # anxiety -ativan PRN used Hospital Course: Admitted for fall at home resulting in L hip fracture. Had to wait 2 days to fix due to being on eliquis. Had some acute encephalopathy and confusion from pain meds and ing treated with seroqeul and ativan. Also found to have UTI and given abx. Underwent successful surgery and discharged to SNF. Will f/up with ortho in 1 week for repeat hip X-rays. Exam Vital Signs (past 8 hours): - 02/12/23 09:32 02/12/23 09:50 Pulse Rate 70 Blood Pressure 113/44 L Pulse Oximetry 97 Oxygen Delivery Method Room Air Oxygen Flow Rate 0 Fraction of Inspired Oxygen 28 Oxygen Delivery Method Room Air Oxygen Flow Rate 0 Narrative Exam Narrative: GEN: no acute distress EXT: hip tender to palpation, dressing clean, dry intact NEURO: awake, alert, oriented Objective Labs 02/12/23 09:55 02/12/23 09:55 Labs: Laboratory Results - last 24 hr 02/12/23 09:55 WBC 8.4 RBC 3.79 L Hgb 12.6 Hct 36.8 MCV 97.1 MCH 33.1 MCHC 34.1 RDW 13.7 Plt Count 188 Neut % (Auto) 78.4 H Lymph % (Auto) 10.3 L [place] % (Auto) 10.0 Eos % (Auto) 1.0 L Baso % (Auto) 0.3 Neut # (Auto) 6600 Lymph # (Auto) 900 L [place] # (Auto) 800 Eos # (Auto) 100 Baso # (Auto) 0 Sodium 136 L Potassium 4.4 Chloride 100 Carbon Dioxide 32 BUN 42 H Creatinine 1.01 Estimated GFR 57 L BUN/Creatinine Ratio 41.6 H Glucose 158 H Calcium 9.1 PFSH Medical History Hyperlipidemia HTN (hypertension) Lower back pain Osteoarthritis of lumbar spine Lumbar strain Surgical History S/P skin biopsy Social History household members: none Smoking Status: Never smoker alcohol intake: current Discharge Plan Discharge Plan Patient Disposition: SNF Discharge orders & Medications Prescriptions: New amoxicillin-pot clavulanate 875-125 mg Tablet 1 tab PO BID 3 Days Qty: 6 0RF quetiapine 25 mg Tablet 25 mg PO BEDTIME Qty: 30 0RF oxycodone 5 mg Tablet 5 mg PO Q4HR PRN (Reason: mod pain) Qty: 30 0RF Continued acetaminophen [Tylenol Extra Strength] 500 MG tablet 500 mg PO Q4HP PRN (Reason: Pain (Scale Score 1-3)) Qty: 0 cholecalciferol (vitamin D3) [Vitamin D3] 2,000 unit tablet 5,000 unit PO QDAY Qty: 0 metoprolol succinate [Toprol XL] 100 MG tablet extended release 24 hr 100 mg PO QPM Qty: 0 furosemide 40 mg tablet 40 mg PO QAM gabapentin 600 mg tablet 600 mg PO BID allopurinol 100 mg tablet 100 mg PO ONCE PM tramadol 50 mg tablet 100 mg PO BID PRN (Reason: pain) spironolactone 25 mg tablet 25 mg PO DAILY glimepiride 4 mg tablet 4 mg PO BID rosuvastatin 5 mg tablet 5 mg PO DAILY Eliquis 5 mg Tablet 5 mg PO BID Trulicity 0.75 mg/0.5 mL Pen Injector 0.75 mg SUBCUT QWEEK Follow up/Referrals: Latoya Isaacs MD [Physician] - 1 Week An Johnson PA-C [Primary Care Provider] - 2 Weeks Visit Report/Discharge Packet Stand Alone Forms: Patient Portal/API Discharge Data Primary Care Provider: An Johnson Quality VTE Deep Vein Thrombosis/Pulmonary Embolism Present on Admission: No
--- NOTE | 2023-02-12 12:03 | CM.DPNOTE ---
DC Note Patient is medically stable for discharge and had a calmer evening last night in regards to agitation and paranoia. According to Dr Springer, patient will discharge with Seroquel.. Reviewed new medication order with Brandi at [facility] and updated PASRR to reflect addition of this medication. Per Brandi, Seroquel is acceptable as long as it is scheduled, which it has been. Faxed latest nursing note per Brandi's request. [facility] accepts for admission today and can pick patient up with their facility van at 1400. Discharge plan reviewed with patient and grandmichelle Christianson and patient/family agreeable to plan. KAROL Vargas, has emailed discharge ppk to Brandi at [facility]. RN updated with time of transport and number to call report. Plan: Discharge to [facility] via wheelchair transport. DONIS
[2023-02-12 12:21] VITALS: BP 101/52; PULSE 74; TEMP 36.1; O2SAT 94
== END 2023-02-12 14:35 | DRG 480 ==
LOC: ED 17:02 → AC 17:12
PROVIDERS: Orthopaedic Surgery; Admitting Provider Student in an Organized Health Care Education/Training Program; Emergency Provider Emergency Medicine; Family Provider Physician Assistant Medical; PCP Physician Assistant Medical; Referring Provider Emergency Medicine; Visit Provider Student in an Organized Health Care Education/Training Program
PROC: 0QS606Z Reposition Right Upper Femur with Intramedullary Internal Fixation Device, Open Approach (ICD-10-PCS; CPT 27245; principal; 2023-02-08 09:00)
DX: S72.21XA Displaced subtrochanteric fracture of right femur, initial encounter for closed fracture (principal); G93.41 Metabolic encephalopathy; J18.9 Pneumonia, unspecified organism; N39.0 Urinary tract infection, site not specified; F03.A2 Unspecified dementia, mild, with psychotic disturbance; J98.11 Atelectasis; I10 Essential (primary) hypertension; E78.5 Hyperlipidemia, unspecified; E11.42 Type 2 diabetes mellitus with diabetic polyneuropathy; F41.9 Anxiety disorder, unspecified; B96.20 Unspecified Escherichia coli [E. coli] as the cause of diseases classified elsewhere; R09.02 Hypoxemia; I48.91 Unspecified atrial fibrillation; G47.33 Obstructive sleep apnea (adult) (pediatric); W18.30XA Fall on same level, unspecified, initial encounter; Z79.85 Long-term (current) use of injectable non-insulin antidiabetic drugs; Z79.84 Long term (current) use of oral hypoglycemic drugs; Z79.01 Long term (current) use of anticoagulants
CPT/HCPCS: 36415; 70450; 71045; 73502; 73552; 76000; 80048; 80053; 80061; 81001; 82962; 83036; 83735; 84443; 85025; 85610; 87040; 87077; 87086; 87186; 94760; 97162; 97167; 97530; 97535; 99284; 99285; C9290; J0171; J0690; J0696; J1100; J1170; J1815; J2060; J2405; J2704; J3010

== ENCOUNTER → 2025-03-27 12:05 | Outpatient (CLI) | payer MEDICARE, OTHER, SELFPAY ==
[2023-02-06 18:23] VITALS: BMI 47.2
--- NOTE | 2025-03-27 12:10 | DI.ECHO.S_ITS ---
[facility] : : [address] : : [place] : : [id number] : : Phone: [phone] Echocardiogram Report + + :Name: ARNIE CASE Study Date: 03/27/2025 Height: 58 in : :[facility] ReadingLocation: Weight: 213 lb: : Gender: Female BSA: 1.9 m2 : :: 1945 Age: 79 yrs : :Reason For Study: DYPSNEA : :Ordering Physician: RADU, : :JANE Performed By: Lucas Jett : :Referring: JANE MCFADDEN : + + Interpretation Summary weatherseal technician notes: PT UNABLE TO POSITION ON EXAM BED, SCANNED SITTING IN WHEELCHAIR. DISCUSSED CONTRAST WITH PATIENT, DECLINED. 1) Normal left ventricular size and systolic function (EF 60-65%). 2) Grossly, normal right ventricular size and function. 3) No significant valvular abnormalities. 4) Compared to the Echo done 01/21/2017, no significant change. Procedure: A two-dimensional transthoracic echocardiogram with color flow and Doppler was performed. The study quality was technically difficult. Comparison is made with the echocardiogram of 01/21/2017. The patient was in atrial fibrillation with heart rates between 58-113 bpm during the exam. Left Ventricle: The left ventricle is normal in size. Left ventricular wall thickness is mildly increased. There is no ventricular septal defect visualized. The ejection fraction is estimated to be 60-65%. Regional wall motion abnormalities cannot be excluded due to limited visualization. Diastolic function could not be accurately assessed due to atrial fibrillation. Right Ventricle: The right ventricle is not well visualized. The right ventricle grossly appears normal in size with probable normal systolic function. Atria: The left atrium is severely dilated. Right atrium not well visualized. There is no Doppler evidence for an interatrial shunt. Mitral Valve: The mitral valve is not well visualized. There is trace mitral regurgitation. Aortic Valve: The aortic valve is not well visualized. There is no hemodynamically significant valvular aortic stenosis. There is trace aortic regurgitation. Tricuspid Valve: The tricuspid valve is not well visualized. No tricuspid regurgitation. Pulmonic Valve: The pulmonic valve is not well visualized. There is no pulmonic valvular regurgitation. Great Vessels: The aortic root is normal size. The dimensions of the ascending aorta are normal. The pulmonary is not well visualized. The IVC is dilated (diameter is greater than 2.1 cm) yet it collapses greater than 50% with a sniff. This suggests a right atrial pressure of 8 mm Hg. MMode/2D Measurements & Calculations LVIDd: 3.7 cm LVOT diam: 1.9 cm LVIDs: 2.5 cm Ao root diam: 3.6 cm FS: 31.3 % asc Aorta Diam: 3.5 cm EPSS: 0.96 cm IVSd: 1.3 cm LVPWd: 1.3 cm LV guevara. diameter/BSA (cm/m^2): 2.0 LV sys. diameter/BSA (cm/m^2): 1.3 LA A2 area: 29.4 cm2 IVC diam: 2.1 cm LA A4 area: 27.1 cm2 LA length (vol): 6.6 cm LA vol: 102.6 ml LA vol index: 54.8 ml/m2 Doppler Measurements & Calculations Ao V2 max: 144.5 cm/sec LVOT Max Conor: 69.7 cm/sec Ao V2 mean: 97.2 cm/sec LV V1 max P.9 mmHg Ao max P.4 mmHg LV V1 VTI: 11.4 cm Ao mean P.3 mmHg RACHAEL(I,D): 1.4 cm2 Ao V2 VTI: 24.1 cm RACHAEL(V,D): 1.4 cm2 sev ratio: 0.47 RACHAEL indexed to BSA (cm^2/m^2): 0.75 MV E max conor: 92.1 cm/sec PA V2 max: 98.4 cm/sec MV A max conor: 40.0 cm/sec PA V2 mean: 66.7 cm/sec MV E/A: 2.3 PA mean P.0 mmHg Med Peak E' Conor: 6.6 cm/sec PA pr(Accel): 60.2 mmHg E/E' med: 14.0 Lat Peak E' Conor: 6.7 cm/sec E/E' lat: 13.7 E/e' average: 13.9 MV dec time: 0.18 sec SV(LVOT): 33.9 ml Reading Physician:05:40 PM
== END ==
PROVIDERS: Family Provider Physician Assistant Medical; PCP Physician Assistant Medical; Referring Provider Physician Assistant Medical; Visit Provider Internal Medicine Cardiovascular Disease
DX: R06.09 Other forms of dyspnea (principal)
CPT/HCPCS: 93306